=== PATIENT | male | born 1985 | race Caucasian/White ===

== ENCOUNTER 2020-06-12 10:26 | Outpatient (REF) | payer MEDICARE, MEDICAID, SELFPAY | END 2020-06-12 10:27 | disposition home or self-care (01) | LOC: HO.LAB 10:26 | PROVIDERS: Visit Provider Internal Medicine | DX: Z20.828 Contact with and (suspected) exposure to other viral communicable diseases (principal) | CPT/HCPCS: C9803; U0003 ==

== ENCOUNTER 2023-01-09 12:18 | Outpatient (REF) | payer MEDICARE, MEDICAID, SELFPAY ==
[2023-01-09 13:32] LABS: Estimated Average Glucose 131 mg/dL; Hemoglobin A1c % 6.2 %
[2023-01-09 13:45] LABS: Cholesterol 198 mg/dL; Glucose Fasting 105 mg/dL (60-99); HDL Cholesterol 37 mg/dL; LDL Cholesterol Calculated 120 mg/dl; Triglycerides 205 mg/dL
[2023-01-09 13:58] LABS: Free T4 (Free Thyroxine) 1.12 ng/dL (0.71-1.85); Thyroid Stimulating Hormone 1.11 uIU/mL (0.32-4.0)
== END 2023-01-09 12:19 | disposition home or self-care (01) ==
LOC: HO.LAB 12:18
PROVIDERS: Visit Provider Family Medicine
DX: R00.0 Tachycardia, unspecified (principal); E66.9 Obesity, unspecified; Z82.49 Family history of ischemic heart disease and other diseases of the circulatory system
CPT/HCPCS: 36415; 80061; 82947; 83036; 84439; 84443

== ENCOUNTER 2024-01-23 07:05 | Outpatient (REF) | payer MEDICARE, MEDICAID, SELFPAY ==
[2024-01-23 07:50] LABS: Estimated Average Glucose 194 mg/dL; Hemoglobin A1c % 8.4 % (<6.0)
[2024-01-23 08:02] LABS: Glucose Fasting 241 mg/dL (60-99)
== END 2024-01-23 07:06 | disposition home or self-care (01) ==
LOC: HO.LAB 07:05
PROVIDERS: PCP Family Medicine; Visit Provider Family Medicine
DX: E66.9 Obesity, unspecified (principal); Z83.3 Family history of diabetes mellitus; Z13.1 Encounter for screening for diabetes mellitus
CPT/HCPCS: 36415; 82947; 83036

== ENCOUNTER 2024-02-04 07:00 | Outpatient (REF) | payer MEDICARE, MEDICAID, SELFPAY ==
[2024-02-04 08:22] LABS: Estimated Average Glucose 183 mg/dL
[2024-02-04 08:44] LABS: Glucose Fasting 170 mg/dL (60-99)
[2024-02-04 08:50] LABS: Creatinine Urine 106.08 mg/dL; Microalbumin Urine < 5.0 mg/L
== END 2024-02-04 07:01 | disposition home or self-care (01) ==
LOC: HO.LAB 07:00
PROVIDERS: PCP Family Medicine; Visit Provider Family Medicine
DX: E11.9 Type 2 diabetes mellitus without complications (principal)
CPT/HCPCS: 36415; 82570; 82947; 83036

== ENCOUNTER 2024-02-05 12:47 | Outpatient (REF) | payer MEDICARE, MEDICAID, SELFPAY ==
[2024-02-15 02:54] LABS: Islet Cell Antibody Screen NEGATIVE (NEGATIVE)
== END 2024-02-05 12:48 | disposition home or self-care (01) ==
LOC: HO.LAB 12:47
PROVIDERS: PCP Family Medicine; Visit Provider Physician Assistant
DX: E11.65 Type 2 diabetes mellitus with hyperglycemia (principal); E66.9 Obesity, unspecified
CPT/HCPCS: 36415; 82947; 84681; 86341; 99202

== ENCOUNTER 2024-02-05 12:47 | Outpatient (AMB) | payer MEDICARE, MEDICAID, SELFPAY ==
--- NOTE | 2024-02-05 13:00 | A.OFFVIS_ITS ---
Vital Signs 02/05/24 13:03 Height 5 ft 6.3 in Weight 220 lb 7.396 oz BMI 35.3 BP 118/76 Blood Pressure Location Rt brachial Position Sitting Pulse 100 Pulse Source Pulse Oximeter Intake Visit Reasons: Type 2 DM/CONFIRMED Intake Note: New Patient presents today to establish treatment for Type 2 Diabetes Mellitus: Last diabetic eye exam was on: DUE Last Podiatry Exam was on: DUE Most recent HbA1c: 8.0%, 02/04/2024 Random Glucose- 149 mg/dL, Today Cathode Maker Required: No Accompanied by: Self / Same As Patient Allergies No Known Allergies [No Known Allergies*] Allergy (Verified 02/05/24 13:15) Medication List - Last Reconciled 02/05/24 by Allison Bashir PA-C famotidine 40 mg PO DAILY metformin 1,000 mg PO DAILY metoprolol succinate ER 25 mg PO DAILY omeprazole 20 mg PO DAILY HPI HPI Type 2 DM/CONFIRMED: Details: Patient is a 38-year-old male with a significant past medical history of type 2 diabetes, obesity, hypertension, tachy and GERD. He has been referred to endocrinology for evaluation of his diabetes. Endo: Last A1c was 8. He states that he got dx 2 weeks ago. He states He is currently on 1000 mg daily. He does get diarrhea at night with the metformin. He states that he does have a good general understanding of diabetes as most of his family members on his father's side are diabetics. He states that he did not really have any symptoms from diabetes. He does not have any testing supplies at home. He states he thinks his father has type 1 dm but cousins and uncles have type 2. CV: Blood pressure today in the office is 118/76.. He is currently on metoprolol 25 mg daily PFSH Surgical History (Updated 02/05/24 @ 13:05 by CHRIS Dey) Hx of hernia repair Family History (Updated 02/05/24 @ 13:06 by CHRIS Dey) Father Heart attack Mother Eye disease Chronic asthma Social History (Updated 02/05/24 @ 13:07 by CHRIS Dey) Alcohol intake: current Alcohol intake frequency: holidays/special occasions only Patient Tobacco Use Status: Former Tobacco user Physical Exam Vital Signs: BMI result Body Mass Index 35.3 Const Orientation/consciousness: patient oriented x3 Neck Neck: Yes no lymphadenopathy Thyroid: Thyroid normal Carotids: no bruits Resp Auscultation: clear to auscultation bilaterally Cardio Rate: regular rate Rhythm: regular rhythm Heart sounds: S1 normal heart sound present and S2 normal heart sound present Peripheral pulses: dorsalis pedis present Neuro General: patient oriented x3, gait normal and no focal motor deficits Extrem Other: Monofilament sensation intact bilaterally. Vibratory sensation intact bilaterally. Skin intact. General: Yes normal to inspection Results Reviewed Results Reviewed: Laboratory Tests 01/09/23 02/04/24 12:25 07:15 Fasting Glucose 170 H Estimat Average Glucose 183 Hemoglobin A1c % 8.0 H Triglycerides 205 Cholesterol 198 LDL Cholesterol, Calc 120 HDL Cholesterol 37 Assessment & Plan Assessment & Plan (1) Uncontrolled type 2 diabetes mellitus with hyperglycemia: Code(s): E11.65 - Type 2 diabetes mellitus with hyperglycemia Category: Medical Plan: We spent almost an hour reviewing the pathophysiology, complications, signs and symptoms of hyper and hypoglycemia and different medications associated with diabetes. Testing supplies ordered. We discussed adding on Ozempic but he would like to hold off and try to stick with the metformin. I will try dosing at 500 mg twice a day to see if that helps with any of his GI symptoms. Advised him to take this with food. I have referred him to diabetic Education as he does walk some more information regarding nutrition. I did provide him a packet today of nutrition information, portion sizes and we discussed carbohydrates at length. I have also encouraged him to increase his exercise. Antibody Test ordered Advised one-month follow-up. Sooner if needed. Patient understands and agrees with the plan. Orders: Orders Islet Cell Antibody Scrn/Titer Today E11.65 - Type 2 diabetes mellitus with hyperglycemia C Peptide Today E11.65 - Type 2 diabetes mellitus with hyperglycemia Referrals Diabetes Education Referral E11.65 - Type 2 diabetes mellitus with hyperglycemia Medications: New blood-glucose meter (FreeStyle Lite Meter kit) Use daily As directed to check blood glucose 1 ea 0RF E11.65 - Type 2 diabetes mellitus with hyperglycemia lancets (FreeStyle Lancets) use daily as directed to check blood glucose 100 ea 3RF E11.65 - Type 2 diabetes mellitus with hyperglycemia metformin 500 mg PO BID 180 tabs 3RF blood sugar diagnostic (FreeStyle Lite Strips) Use daily As directed to check blood glucose 100 ea 3RF E11.9 - Type 2 diabetes mellitus without complications Coding Level of Care Code New Pt Level 4 (42312) Complex EM visit Add On G2211 Diagnoses Uncontrolled type 2 diabetes mellitus with hyperglycemia E11.65
[2024-02-05 13:03] VITALS: BP 118/76; PULSE 100; BMI 35.3
[2024-02-05 13:14] LABS: Glucose, Whole Blood 149 mg/dL (60-115)
== END 2024-02-05 13:35 | disposition home or self-care (01) ==
PROVIDERS: PCP Family Medicine; Visit Provider Physician Assistant
DX: E11.65 Type 2 diabetes mellitus with hyperglycemia (principal)
CPT/HCPCS: 99204; G2211

== ENCOUNTER 2024-02-11 13:34 | Outpatient (REF) | payer MEDICARE, MEDICAID, SELFPAY ==
--- NOTE | ~2024-02-11 | XR_ITS ---
EXAMINATION: XR KNEE, LEFT CLINICAL INFORMATION: Pain in left knee COMPARISON: None available. TECHNIQUE: Four views of the left knee. FINDINGS: No fracture or joint effusion. Alignment is anatomic. Joint spaces are maintained. No abnormal soft tissue calcification. XR/XR knee LT 4V IMPRESSION: Normal left knee.
== END 2024-02-11 13:35 | disposition home or self-care (01) ==
LOC: HO.XRAY 13:34
PROVIDERS: PCP Family Medicine; Visit Provider Family Medicine
DX: M25.562 Pain in left knee (principal)
CPT/HCPCS: 73564

== ENCOUNTER 2024-02-19 13:14 | Outpatient (AMB) | payer MEDICARE, MEDICAID, SELFPAY ==
[2024-02-19 13:16] VITALS: BP 120/80; PULSE 91; BMI 35.5
--- NOTE | 2024-02-19 13:16 | A.OFFVIS_ITS ---
Vital Signs 02/19/24 13:16 Height 5 ft 6.3 in Weight 222 lb 0.088 oz BMI 35.5 BP 120/80 Blood Pressure Location Lt brachial Position Sitting Pulse 91 Pulse Source Pulse Oximeter Intake Visit Reasons: T2DM/Metformin issue-CONFIRMED Intake Note: Patient presents today for [facility] follow up visit. 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 Accompanied by: Self / Same As Patient Allergies No Known Allergies [No Known Allergies*] Allergy (Verified 02/19/24 13:22) Medication List - Last Reconciled 02/19/24 by Allison Bashir PA-C blood sugar diagnostic (FreeStyle Lite Strips) Use daily As directed to check blood glucose blood-glucose meter (FreeStyle Lite Meter kit) Use daily As directed to check blood glucose famotidine 40 mg PO DAILY lancets (FreeStyle Lancets) use daily as directed to check blood glucose metformin 500 mg PO BID metoprolol succinate ER 25 mg PO DAILY omeprazole 20 mg PO DAILY HPI HPI T2DM/Metformin issue-CONFIRMED: Details: Patient is a 38-year-old male with a significant past medical history of type 2 diabetes, obesity, hypertension, tachy and GERD who presents today in regards to his diabetes. Endo: Last A1c was 8. At our last visit I reduced his metformin. He is currently on metformin 500 mg once daily as he continued to have side effects with the metformin in his PCP further reduced it. He has been experiencing headaches, increased gas and diarrhea. So far the workup for type 1 diabetes is negative. He states he thinks his father has type 1 dm but cousins and uncles have type 2. CV: Blood pressure today in the office is 120/80.. He is currently on metoprolol 25 mg daily [facility] Medical History (Updated 02/15/24 @ 08:32 by Allison Bashir PA-C) Family history of type 1 diabetes mellitus Surgical History (Updated 02/05/24 @ 13:05 by CHRIS Dey) Hx of hernia repair Family History (Updated 02/05/24 @ 13:06 by CHRIS Dey) Father Heart attack Mother Eye disease Chronic asthma Social History (Updated 02/05/24 @ 13:07 by CHRIS Dey) Alcohol intake: current Alcohol intake frequency: holidays/special occasions only Patient Tobacco Use Status: Former Tobacco user Physical Exam Const Orientation/consciousness: patient oriented x3 Neck Neck: Yes no lymphadenopathy Thyroid: Thyroid normal Carotids: no bruits Resp Auscultation: clear to auscultation bilaterally Cardio Rate: regular rate Rhythm: regular rhythm Heart sounds: S1 normal heart sound present and S2 normal heart sound present Peripheral pulses: dorsalis pedis present Neuro General: patient oriented x3, gait normal and no focal motor deficits Extrem General: Yes normal to inspection Results Reviewed Results Reviewed: Laboratory Tests 01/09/23 02/04/24 02/05/24 12:25 07:15 13:10 Glucose (Clinic) 149 H Fasting Glucose 170 H Estimat Average Glucose 183 Hemoglobin A1c % 8.0 H C-Peptide Cholesterol 198 LDL Cholesterol, Calc 120 HDL Cholesterol 37 Islet Cell Ab Screen 02/05/24 13:54 Glucose (Clinic) Fasting Glucose Estimat Average Glucose Hemoglobin A1c % C-Peptide 3.70 Cholesterol LDL Cholesterol, Calc HDL Cholesterol Islet Cell Ab Screen NEGATIVE Assessment & Plan Assessment & Plan (1) Uncontrolled type 2 diabetes mellitus with hyperglycemia: Code(s): E11.65 - Type 2 diabetes mellitus with hyperglycemia Category: Medical Plan: I will start him on Ozempic. We discussed risks and benefits and adverse effects of this medication including nausea, vomiting, increased risk of pancreatitis. We have a follow-up scheduled in a few weeks. We will follow up sooner if needed. He will let me know if he runs into any issues picking this up. We will discontinue the metformin as he does not tolerate this. Patient understands and agrees with this plan. Medications: New semaglutide (Ozempic) for 4 weeks 0.25 mg (0.368 mL) subcut QWEEK 3 mL 1RF Discontinued metformin Discontinued Reason: Doctor's Order 500 mg PO BID 180 tabs 3RF Coding Level of Care Code Est Pt Level 4 (27873) Diagnoses Uncontrolled type 2 diabetes mellitus with hyperglycemia E11.65
[2024-02-19 13:30] LABS: Glucose, Whole Blood 145 mg/dL (60-115)
== END 2024-02-19 13:39 | disposition home or self-care (01) ==
PROVIDERS: PCP Family Medicine; Visit Provider Physician Assistant
DX: E11.65 Type 2 diabetes mellitus with hyperglycemia (principal)
CPT/HCPCS: 99214

== ENCOUNTER 2024-02-19 13:14 | Outpatient (REF) | payer MEDICARE, MEDICAID, SELFPAY ==
[2024-02-23 20:53] LABS: Glutamic acid decarboxylase Ab <5 IU/mL (<5)
== END 2024-02-19 13:15 | disposition home or self-care (01) ==
LOC: HO.LAB 13:14
PROVIDERS: PCP Family Medicine; Visit Provider Physician Assistant
DX: E11.65 Type 2 diabetes mellitus with hyperglycemia (principal); Z83.3 Family history of diabetes mellitus
CPT/HCPCS: 36415; 82947; 86341; 99212

== ENCOUNTER 2024-02-25 13:48 | Outpatient (AMB) | payer MEDICARE, MEDICAID, SELFPAY ==
--- NOTE | 2024-02-25 14:40 | A.OFFVIS_ITS ---
Intake Intake Visit Reasons: Type 2 diabetes mellitus with hyperglycemia Professor Of Biological Sciences Required: No Accompanied by: Self / Same As Patient Allergies No Known Allergies [No Known Allergies*] Allergy (Verified 02/19/24 13:22) [facility] Comprehensive Diabetes Asmnt Most Recent Diabetes Results: Microalb/Creat Ratio TNP 02/04/24 Cholesterol 198 mg/dL 01/09/23 HDL Cholesterol 37 mg/dL 01/09/23 Triglycerides 205 mg/dL 01/09/23 Creatinine 0.99 MG/DL (0.5-1.4) 05/04/19 Blood Urea Nitrogen 14 MG/DL (9-16) 05/04/19 Sodium 136 MMOL/L (135-145) 05/04/19 Potassium 3.8 MMOL/L (3.3-5.1) 05/04/19 Chloride 104 MMOL/L (96-108) 05/04/19 [facility] Medical History (Updated 02/15/24 @ 08:32 by Allison Bashir PA-C) Family history of type 1 diabetes mellitus Surgical History Hx of hernia repair Family History Father Heart attack Mother Eye disease Chronic asthma Social History Alcohol intake: current Alcohol intake frequency: holidays/special occasions only Patient Tobacco Use Status: Former Tobacco user Assessment & Plan Assessment & Plan (1) Uncontrolled type 2 diabetes mellitus with hyperglycemia: Code(s): E11.65 - Type 2 diabetes mellitus with hyperglycemia Plan: Learning objectives: The patient was provided with verbal and written education on the following topics as outlined below. The patient met all learning objectives and was able to verbalize understanding and provide teach back of education topics discussed . The patient was provided with the opportunity to ask questions and all questions were answered. Patient Assessment Assess patient education level/literacy/barriers Patient questions/concerns patient was diagnosed with diabetes approximately 1 month ago with an A1c of 8%. Patient reports he has family history of A1c, on both his mother and father side of the family Patient is currently taking metformin 1000 mg daily Waiting for approval of Mounjaro 2.5 mg from insurance, when he starts Mounjaro he will stop metformin due to GI issues What is Diabetes? Pathophysiology How the body produces and uses insulin Identify type of DM Risk factors Signs of Diabetes Brief overview of Diabetes Management Monitoring blood sugar Following a meal plan Regular exercise Maintaining a healthy weight Taking medication as needed Members of the care team (PCP, RN, MA, RD, CDE, supervisory air intercept controller) Blood glucose monitoring When/how often to test Target blood sugar ranges Introduction to Nutrition Importance of healthy diet in managing DM Diet is personalized to individual preference Review patient?s regular diet/food preferences Who prepares meals/does food shopping/ Dining out?/ Barriers? How diet effects glucose Eating 3 balanced meals a day with small, healthy snacks between meals Review food groups Carbohydrates: What is a carbohydrate/Which food/food groups are considered carbohydrates Effect of carbohydrates on blood glucose Portion sizes Reading food labels Basic carb counting (if applicable per nursing assessment) Plate method Meal planning Recommendations: Follow plate method, consistent carbs and read nutritional labels. Smart Goal: Patient will identify foods that he is currently eating that contain carbohydrates Educational Materials: The patient was provided with the following written educational materials: Planning Healthy Meals, Target Goal Handout Patient Response to instructions: Comprehension of Instructions: Fair Readiness to make changes: Contemplation How confident they feel about making changes: Positive Portions of this note were created using voice recognition software, please excuse any words or phrases that may have been misinterpreted. Patient Instructions: Include regular daily activity. ADA recommends 30 minutes of exercise 5 days a week. Weight loss talk to PCP or [employer] before starting new plan. Test blood sugar as directed; Fasting and 2hpp largest meal. Watch trends in results. Utilize results and to assess how food, physical activity and medications affect blood sugar results. Bring glucometer or CGM to next visit. Be knowledgeable about diabetes medication, its action, side effects, efficacy, toxicity, prescribed dosage, appropriate timing and frequency of administration, effect of missed and delayed doses and instructions for storage, travel and safety. Problem solving techniques to monitor hypo/hyperglycemia episodes and treatments. Reduce risk reduction behaviors, smoking cessation, regular eye, foot and dental examinations. Coding Level of Care Code Est Pt Level 1 (30401) Diagnoses Uncontrolled type 2 diabetes mellitus with hyperglycemia E11.65
== END 2024-02-25 14:42 | disposition home or self-care (01) ==
PROVIDERS: PCP Family Medicine; Visit Provider Registered Nurse Diabetes Educator
DX: E11.65 Type 2 diabetes mellitus with hyperglycemia (principal)

== ENCOUNTER → 2024-02-25 13:48 | Outpatient (BNVA) | payer MEDICARE, MEDICAID, SELFPAY | PROVIDERS: PCP Family Medicine; Visit Provider Registered Nurse Diabetes Educator | DX: E11.65 Type 2 diabetes mellitus with hyperglycemia (principal) | CPT/HCPCS: 99211 ==

== ENCOUNTER 2024-03-11 12:53 | Outpatient (AMB) | payer MEDICARE, MEDICAID, SELFPAY ==
[2024-03-11 12:57] VITALS: BP 118/78; PULSE 95; BMI 35.1
--- NOTE | 2024-03-11 12:57 | A.OFFVIS_ITS ---
Vital Signs 03/11/24 12:57 Height 5 ft 6.3 in Weight 219 lb 9.286 oz BMI 35.1 BP 118/78 Blood Pressure Location Lt brachial Position Sitting Pulse 95 Pulse Source Pulse Oximeter Intake Visit Reasons: T2DM Intake Note: Patient presents today for [facility] follow up visit. Last Diabetic Eye exam: 05/2023 Last Podiatry Visit: Doens't have one. 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 Accompanied by: Self / Same As Patient Allergies No Known Allergies [No Known Allergies*] Allergy (Verified 03/11/24 13:08) Medication List - Last Reconciled 03/11/24 by Allison Bashir PA-C blood sugar diagnostic (FreeStyle Lite Strips) Use daily As directed to check blood glucose blood-glucose meter (FreeStyle Lite Meter kit) Use daily As directed to check blood glucose famotidine 40 mg PO DAILY lancets (FreeStyle Lancets) use daily as directed to check blood glucose metoprolol succinate ER 25 mg PO DAILY omeprazole 20 mg PO DAILY tirzepatide (Mounjaro) 2.5 mg (0.5 mL) subcut QWEEK 4 weeks HPI HPI T2DM: Details: Patient is a 38-year-old male with a significant past medical history of type 2 diabetes presenting today for a follow-up. At our last visit I started him on Ozempic but it was not covered by insurance. The recommendation was Trulicity however this was out of stock. We then ordered Mounjaro but he was unable to get this. He has remained on metformin 500 mg once a day has excess gas and GI symptoms with this medication. Does not like this. He is unable to tolerate metformin. He has been checking his blood sugars regularly and states that it is usually between 140 and 150 in the morning fasting. Denies feeling hypoglycemic. He is working hard on his diet. He has lost a few lb with diet and exercise. [facility] Medical History (Updated 02/15/24 @ 08:32 by Allison Bashir PA-C) Family history of type 1 diabetes mellitus Surgical History Hx of hernia repair Family History Father Heart attack Mother Eye disease Chronic asthma Social History Alcohol intake: current Alcohol intake frequency: holidays/special occasions only Patient Tobacco Use Status: Former Tobacco user Physical Exam Vital Signs: Last Vital Signs Pulse 95 03/11/24 12:57 BP 118/78 03/11/24 12:57 BMI result Body Mass Index 35.1 Const Orientation/consciousness: patient oriented x3 Neck Neck: Yes no lymphadenopathy Thyroid: Thyroid normal Carotids: no bruits Resp Auscultation: clear to auscultation bilaterally Cardio Rate: regular rate Rhythm: regular rhythm Heart sounds: S1 normal heart sound present and S2 normal heart sound present Peripheral pulses: dorsalis pedis present Neuro General: patient oriented x3, gait normal and no focal motor deficits Extrem Other: Monofilament sensation intact bilaterally. Vibratory sensation intact bilaterally. Skin intact. General: Yes normal to inspection Results Reviewed Results Reviewed: Laboratory Tests 05/04/19 02/05/24 02/19/24 03:58 13:54 13:25 WBC 10.2 Glucose (Clinic) 145 H C-Peptide 3.70 Laboratory Tests 02/04/24 02/05/24 02/19/24 07:15 13:54 13:59 Urine Creatinine 106.08 Urine Microalbumin < 5.0 Microalb/Creat Ratio TNP Islet Cell Ab Screen NEGATIVE ADELSO Antibody <5 Laboratory Tests 01/09/23 01/23/24 02/04/24 12:25 07:16 07:15 Hemoglobin A1c % 6.2 8.4 H 8.0 H Triglycerides 205 Cholesterol 198 LDL Cholesterol, Calc 120 HDL Cholesterol 37 Assessment & Plan Assessment & Plan (1) Uncontrolled type 2 diabetes mellitus with hyperglycemia: Code(s): E11.65 - Type 2 diabetes mellitus with hyperglycemia Category: Medical Plan: Trulicity is back in stock. Ordered today. Prior Auth started. We reviewed risks, benefits and adverse effects of this medication including nausea, vomiting, increased risk of pancreatitis, diarrhea, constipation etc.. No family history of thyroid cancer. Advised to follow up in 1 month. Sooner if n eeded. Patient understands and agrees with the plan. Medications: New dulaglutide (Trulicity) 0.75 mg (0.5 mL) subcut QWEEK 2 mL 2RF Discontinued tirzepatide (Mounjaro) Discontinued Reason: Doctor's Order 2.5 mg (0.5 mL) subcut QWEEK 4 weeks 2 mL 1RF Coding Level of Care Code Est Pt Level 4 (05636) Diagnoses Uncontrolled type 2 diabetes mellitus with hyperglycemia E11.65
[2024-03-11 13:13] LABS: Glucose, Whole Blood 128 mg/dL (60-115)
== END 2024-03-11 13:35 | disposition home or self-care (01) ==
PROVIDERS: PCP Family Medicine; Visit Provider Physician Assistant
DX: E11.65 Type 2 diabetes mellitus with hyperglycemia (principal)
CPT/HCPCS: 99214

== ENCOUNTER → 2024-03-11 12:53 | Outpatient (BNVA) | payer MEDICARE, MEDICAID, SELFPAY | PROVIDERS: PCP Family Medicine; Visit Provider Physician Assistant | DX: E11.65 Type 2 diabetes mellitus with hyperglycemia (principal) | CPT/HCPCS: 82947; 99212 ==

== ENCOUNTER 2024-04-15 12:49 | Outpatient (AMB) | payer MEDICARE, MEDICAID, SELFPAY ==
--- NOTE | 2024-04-15 12:52 | A.OFFVIS_ITS ---
Vital Signs 04/15/24 12:53 Height 5 ft 6.3 in Weight 222 lb 7.143 oz BMI 35.6 BP 110/80 Blood Pressure Location Lt brachial Position Sitting Pulse 90 Pulse Source Pulse Oximeter Intake Visit Reasons: DM/CONFIRMED Intake Note: Patient presents today for [facility] follow up visit. Last Diabetic Eye exam: 05/2023 Last Podiatry Visit: Doesn't have one Random Glucose: 153 mg/dl HgA1c: 8.0% 02/04/24 Mental Health Consultant Required: No Accompanied by: Self / Same As Patient Allergies No Known Allergies [No Known Allergies*] Allergy (Verified 04/15/24 12:57) Medication List - Last Reconciled 04/15/24 by Allison Bashir PA-C blood sugar diagnostic (FreeStyle Lite Strips) Use daily As directed to check blood glucose blood-glucose meter (FreeStyle Lite Meter kit) Use daily As directed to check blood glucose dulaglutide (Trulicity) 0.75 mg (0.5 mL) subcut QWEEK famotidine 40 mg PO DAILY lancets (FreeStyle Lancets) use daily as directed to check blood glucose metoprolol succinate ER 25 mg PO DAILY omeprazole 20 mg PO DAILY HPI HPI DM/CONFIRMED: Details: Patient is a 39-year-old male who presents today for a follow up of his diabetes. Endo: Recently diagnosed type 2 diabetic. Trialed metformin because GI upset. Last A1c was 8. He was seen recently and started on Trulicity. He tells me that he is tolerating this very well. No adverse effects. His blood sugars have been anywhere from 110-150 in the morning. He states that this is a lot better. Over the last couple weeks it seems like it has been closer to the 110- 130. He has not noted any appetite suppression. He states that he would like to lose a few lb and states that he knows what he is doing wrong. CV: Blood pressure today in the office is 110/80. He is on metoprolol 25 mg daily. [facility] Medical History (Updated 02/15/24 @ 08:32 by Allison Bashir PA-C) Family history of type 1 diabetes mellitus Surgical History Hx of hernia repair Family History Father Heart attack Mother Eye disease Chronic asthma Social History Alcohol intake: current Alcohol intake frequency: holidays/special occasions only Patient Tobacco Use Status: Former Tobacco user Physical Exam Vital Signs: Last Vital Signs Pulse 90 04/15/24 12:53 BP 110/80 04/15/24 12:53 BMI result Body Mass Index 35.6 Const Orientation/consciousness: patient oriented x3 Neck Neck: Yes no lymphadenopathy Thyroid: Thyroid normal Carotids: no bruits Resp Auscultation: clear to auscultation bilaterally Cardio Rate: regular rate Rhythm: regular rhythm Heart sounds: S1 normal heart sound present and S2 normal heart sound present Peripheral pulses: dorsalis pedis present Neuro General: patient oriented x3, gait normal and no focal motor deficits Extrem Other: Monofilament sensation intact bilaterally. Vibratory sensation intact bilaterally. Skin intact. General: Yes normal to inspection Results Reviewed Results Reviewed: Laboratory Tests 02/04/24 02/05/24 02/19/24 07:15 13:54 13:59 Glucose (Clinic) Hemoglobin A1c % 8.0 H C-Peptide 3.70 Urine Creatinine 106.08 Urine Microalbumin < 5.0 Microalb/Creat Ratio TNP Islet Cell Ab Screen NEGATIVE ADELSO Antibody <5 03/11/24 04/15/24 13:09 12:59 Glucose (Clinic) 128 H 153 H Hemoglobin A1c % C-Peptide Urine Creatinine Urine Microalbumin Microalb/Creat Ratio Islet Cell Ab Screen ADELSO Antibody Assessment & Plan Assessment & Plan (1) Uncontrolled type 2 diabetes mellitus with hyperglycemia: Code(s): E11.65 - Type 2 diabetes mellitus with hyperglycemia Category: Medical Plan: Will increase trulicity to 1.5 mg weekly. labs ordered to be rechecked prior to next appointment. follow up in 3 months or sooner prn Orders: Orders Comprehensive [place]. Panel Fast Today E11.65 - Type 2 diabetes mellitus with hyperglycemia Hemoglobin A1c Today E11.65 - Type 2 diabetes mellitus with hyperglycemia Medications: New dulaglutide (Trulicity) 1.5 mg (0.5 mL) subcut QWEEK 2 mL 6RF Discontinued dulaglutide (Trulicity) Discontinued Reason: Doctor's Order 0.75 mg (0.5 mL) subcut QWEEK 2 mL 2RF Coding Level of Care Code Est Pt Level 4 (78762) Complex EM visit Add On G2211 Diagnoses Uncontrolled type 2 diabetes mellitus with hyperglycemia E11.65
[2024-04-15 12:53] VITALS: BP 110/80; PULSE 90; BMI 35.6
[2024-04-15 13:03] LABS: Glucose, Whole Blood 153 mg/dL (60-115)
== END 2024-04-15 13:16 | disposition home or self-care (01) ==
PROVIDERS: PCP Family Medicine; Visit Provider Physician Assistant
DX: E11.65 Type 2 diabetes mellitus with hyperglycemia (principal)

== ENCOUNTER → 2024-04-15 12:49 | Outpatient (BNVA) | payer MEDICARE, MEDICAID, SELFPAY | PROVIDERS: PCP Family Medicine; Visit Provider Physician Assistant | DX: E11.65 Type 2 diabetes mellitus with hyperglycemia (principal); Z79.85 Long-term (current) use of injectable non-insulin antidiabetic drugs | CPT/HCPCS: 82947; 99212 ==

== ENCOUNTER 2024-05-26 12:43 | Outpatient (AMB) | payer MEDICARE, MEDICAID, SELFPAY ==
--- NOTE | 2024-05-26 13:07 | A.OFFVIS_ITS ---
Intake Intake Visit Reasons: T2DM, hyperglycemia-conf Tool Maker Bench Required: No Accompanied by: Self / Same As Patient Allergies No Known Allergies [No Known Allergies*] Allergy (Verified 04/15/24 12:57) HPI Comprehensive Diabetes Asmnt Most Recent Diabetes Results: Microalb/Creat Ratio TNP 02/04/24 Cholesterol 198 mg/dL 01/09/23 HDL Cholesterol 37 mg/dL 01/09/23 Triglycerides 205 mg/dL 01/09/23 Creatinine 0.99 MG/DL (0.5-1.4) 05/04/19 Blood Urea Nitrogen 14 MG/DL (9-16) 05/04/19 Sodium 136 MMOL/L (135-145) 05/04/19 Potassium 3.8 MMOL/L (3.3-5.1) 05/04/19 Chloride 104 MMOL/L (96-108) 05/04/19 [facility] Medical History (Updated 02/15/24 @ 08:32 by Alilson Bashir PA-C) Family history of type 1 diabetes mellitus Surgical History Hx of hernia repair Family History Father Heart attack Mother Eye disease Chronic asthma Social History Alcohol intake: current Alcohol intake frequency: holidays/special occasions only Patient Tobacco Use Status: Former Tobacco user Assessment & Plan Assessment & Plan (1) Uncontrolled type 2 diabetes mellitus with hyperglycemia: Code(s): E11.65 - Type 2 diabetes mellitus with hyperglycemia Plan: Learning objectives: The patient was provided with verbal and written education on the following topics as outlined below. Patient questions/concerns, patient has 2nd visit brought meter with only 3 fasting glucose levels in the past 14 days. 113 mg/dL to 138 mg/dL Patient is currently taking Trulicity 1.5 mg weekly Patient is due for A1c, lab has been place patient reports he will get labs drawn next week Overall patient reports feeling well, he has been more physically active over the summer playing softball. Denies symptoms of hypoglycemia The patient met all learning objectives and was able to verbalize understanding and provide teach back of education topics discussed . The patient was provided with the opportunity to ask questions and all questions were answered. Topics covered in today?s session included: Medications (If applicable) * Name of medication? * Dosing/administration instructions? * Mechanism of action? * Potential side effects? * Potential adverse reaction and appropriate treatment? * Review onset, peak, duration Assess for concerns re: insurance coverage, cost, barriers to compliance Insulin/Injectables (If applicable) * Storage/care of insulin?? * Injection sites? * Site rotation? * Onset, peak, duration * Drawing up insulin? * Injecting insulin/other injectables? * Sharps disposal Continuous blood glucose monitoring (if applicable) Hypoglycemia and Hyperglycemia * Signs and symptoms? * Causes?? * Treatment? * Preventing hypoglycemia? * When to seek medical attention Target Goals: * Blood glucose targets and how you feel when your blood glucose is in and out of your target ranges. * Monitoring and knowing your A1C. * What can make blood glucose go up and down and preventing high and low blood glucose. * Review of blood sugar targets in expected goal range and outside of expected goal range. * Problem solving and preventing hyper/hypoglycemia. * Sick day management of diabetes. * Using blood sugar results in decision making process in managing diabetes. ?Patient was receptive to information provided and participated in the discussion. Asked?appropriate questions and demonstrated good understanding of the topics discussed.? ? Educational Materials: The patient was provided with the following written educational materials: Target Goal, screening checklist handout Smart Goal Assessment:? Patient identified foods that contain carbohydrate that he is currently eating Pt met goal 75% New Smart Goal: Patient will choose indoor activity to keep up exercise before next visit in 1 month Patient Response to instructions: Comprehension of Instructions: good Readiness to make changes:? Contemplation How confident they feel about making changes: Positive Portions of this note were created using voice recognition software, please excuse any words or phrases that may have been misinterpreted. Coding Level of Care Code Est Pt Level 1 (70850) Diagnoses Uncontrolled type 2 diabetes mellitus with hyperglycemia E11.65
== END 2024-05-26 13:23 | disposition home or self-care (01) ==
LOC: HO.ENCR 12:43
PROVIDERS: PCP Family Medicine; Visit Provider Registered Nurse Diabetes Educator
DX: E11.65 Type 2 diabetes mellitus with hyperglycemia (principal)

== ENCOUNTER → 2024-05-26 12:43 | Outpatient (BNVA) | payer MEDICARE, MEDICAID, SELFPAY | PROVIDERS: PCP Family Medicine; Visit Provider Registered Nurse Diabetes Educator | DX: E11.65 Type 2 diabetes mellitus with hyperglycemia (principal); Z71.89 Other specified counseling | CPT/HCPCS: 99211 ==

== ENCOUNTER 2024-05-28 08:04 | Outpatient (REF) | payer MEDICARE, MEDICAID, SELFPAY ==
[2024-05-28 09:35] LABS: Estimated Average Glucose 148 mg/dL; Hemoglobin A1c % 6.8 % (<6.0); Total Hemoglobin (HGBA1C) 4176.3978 umol/L
[2024-05-28 10:32] LABS: Alanine Aminotransferase 67 U/L (0-40); Albumin Level 4.5 g/dL (3.5-5.0); Alkaline Phosphatase 89 U/L (39-117); Anion Gap 17 (12-20); Aspartate Amino Transferase 29 U/L (5-37); Bilirubin Total 0.5 mg/dL (0.0-1.0); Blood Urea Nitrogen 14 mg/dL (9-16); Calcium 9.4 mg/dL (8.4-10.2); Carbon Dioxide 21 mmol/L (22-29); Chloride 106 mmol/L (96-108); Estimated Glomerular Filt Rate > 60; Glucose Fasting 144 mg/dL (60-99); Sodium 140 mmol/L (135-145); Total Protein 7.6 g/dL (6.5-8.0)
== END 2024-05-28 08:05 | disposition home or self-care (01) ==
LOC: HO.LAB 08:04
PROVIDERS: PCP Physician Assistant; Visit Provider Physician Assistant
DX: E11.65 Type 2 diabetes mellitus with hyperglycemia (principal)
CPT/HCPCS: 36415; 80053; 83036

== ENCOUNTER 2024-06-21 08:00 | Outpatient (REF) | payer MEDICARE, MEDICAID, SELFPAY | END 2024-06-21 08:01 | disposition home or self-care (01) | LOC: HO.US 08:00 | PROVIDERS: PCP Physician Assistant; Visit Provider Physician Assistant | DX: E11.65 Type 2 diabetes mellitus with hyperglycemia (principal); R79.89 Other specified abnormal findings of blood chemistry; E66.9 Obesity, unspecified | CPT/HCPCS: 76700; 76981 ==

== ENCOUNTER → 2024-06-21 08:05 | Outpatient (BNV) | payer MEDICARE, MEDICAID, SELFPAY | PROVIDERS: PCP Physician Assistant; Visit Provider Radiology Diagnostic Radiology | DX: R74.01 Elevation of levels of liver transaminase levels (principal) | CPT/HCPCS: 76700 ==

== ENCOUNTER 2024-06-30 12:44 | Outpatient (AMB) | payer MEDICARE, MEDICAID, SELFPAY ==
--- NOTE | 2024-06-30 13:17 | A.OFFVIS_ITS ---
Intake Intake Visit Reasons: 60 min Workplace Rehabilitation Officer Required: No Accompanied by: Self / Same As Patient Allergies No Known Allergies [No Known Allergies*] Allergy (Verified 04/15/24 12:57) HPI Comprehensive Diabetes Asmnt Most Recent Diabetes Results: Microalb/Creat Ratio TNP 02/04/24 Cholesterol 198 mg/dL 01/09/23 HDL Cholesterol 37 mg/dL 01/09/23 Triglycerides 205 mg/dL 01/09/23 Creatinine 0.91 mg/dL (0.5-1.4) 05/28/24 Blood Urea Nitrogen 14 mg/dL (9-16) 05/28/24 Sodium 140 mmol/L (135-145) 05/28/24 Potassium 4.0 mmol/L (3.3-5.1) 05/28/24 Chloride 106 mmol/L (96-108) 05/28/24 Carbon Dioxide 21 mmol/L (22-29) L 05/28/24 Calcium 9.4 mg/dL (8.4-10.2) 05/28/24 AST 29 U/L (5-37) 05/28/24 ALT 67 U/L (0-40) H 05/28/24 Total Protein 7.6 g/dL (6.5-8.0) 05/28/24 Albumin 4.5 g/dL (3.5-5.0) 05/28/24 [facility] Medical History (Updated 05/30/24 @ 08:17 by Allison Bashir PA-C) Family history of type 1 diabetes mellitus Surgical History Hx of hernia repair Family History Father Heart attack Mother Eye disease Chronic asthma Social History Alcohol intake: current Alcohol intake frequency: holidays/special occasions only Patient Tobacco Use Status: Former Tobacco user Assessment & Plan Assessment & Plan (1) Uncontrolled type 2 diabetes mellitus with hyperglycemia: Code(s): E11.65 - Type 2 diabetes mellitus with hyperglycemia Plan: Learning objectives: The patient was provided with verbal and written education on the following topics as outlined below. The patient met all learning objectives and was able to verbalize understanding and provide teach back of education topics discussed . The patient was provided with the opportunity to ask questions and all questions were answered. Patient Assessment Patient questions/concerns patient's last A1c on 05/25/2024 6.8%, patient reports he has decreased the amount of take out food he was eating, and reduced portions of carbohydrates at meals. Patient is currently taking Trulicity 1.5 mg weekly Exercise Medical clearance Effect of exercise on blood sugar Start slowly and gradually increase pace/duration over time Goal amount of exercise Checking blood glucose/have a source of carbs with you Diabetes Complications: ?Nephropathy :Kidney Disease ?diabetes can damage the kidneys, which is not only can cause them to fail but can make them lose their ability to filter waste from the blood? ?Retinopathy: Eye complications ?Retinopathy? is the commonest long-term complication of diabetes. It is leading cause of blindness Besides, Retinopathy- People with diabetes? are also prone to cataract and Glaucoma. ?Neuropathy: Nerve damage -It involves temporary or permanent damage to nerve tissue. Nerve tissue gets injured mainly due to decreased blood flow and rise in blood glucose levels. This damage can lead to pain , or loss of sensation it can also include sexual dysfunction in both men and women ? Infections poor healing: People with diabetes? have increased susceptibility to various infections, such as? pneumonias, pyelonephritis, carbuncles and diabetic ulcers. This may be due to poor blood supply, reduced cellular immunity or hyperglycemia. ?Heart Disease And Stroke: People with diabetes are four times more prone to develop Heart disease than those who do not have diabetes ?Depression: Feeling down once in awhile is normal, but some people feel sadness that just won't go away. Life for them seems hopeless. Feeling this way most of the day for two weeks or more is a sign of serious depression ?Gum Disease: People get gum disease when plaque destroys the gums and bone around the teeth. People with diabetes can get gum disease from having high blood glucose levels for a long time Lifestyle * Work * Travel * Stress management * Problem solving Know your goals * A1C * Blood sugar targets * Blood pressure * Cholesterol/LDL Urine microalbumin Smart Goal Assessment:Patient will choose indoor activity to keep up exercise before next visit in 1 month Pt met goal less than 25% New Goal:? Patient will continue to work towards increasing physical activity Educational Materials: The patient was provided with the following written educational materials: ADCES 7 Healthy Behaviors Reducing Risks handout Patient Response to instructions: Comprehension of Instructions: Good Readiness to make changes: action How confident they feel about making changes: Positive Letter of completion of diabetes Education program will be sent to referring provider Portions of this note were created using voice recognition software, please excuse any words or phrases that may have been misinterpreted. Patient Instructions: Include regular daily activity. ADA recommends 30 minutes of exercise 5 days a week. Weight loss talk to PCP or Cavity Pump Operator before starting new plan. Test blood sugar as directed; Fasting and 2hpp largest meal. Watch trends in results. Utilize results and to assess how food, physical activity and medications affect blood sugar results. Bring glucometer or CGM to next visit. Be knowledgeable about diabetes medication, its action, side effects, efficacy, toxicity, prescribed dosage, appropriate timing and frequency of administration, effect of missed and delayed doses and instructions for storage, travel and safety. Problem solving techniques to monitor hypo/hyperglycemia episodes and treatments. Reduce risk reduction behaviors, smoking cessation, regular eye, foot and dental examinations. Coding Level of Care Code Est Pt Level 1 (17674) Diagnoses Uncontrolled type 2 diabetes mellitus with hyperglycemia E11.65
== END 2024-06-30 13:22 | disposition home or self-care (01) ==
PROVIDERS: PCP Family Medicine; Visit Provider Registered Nurse Diabetes Educator
DX: E11.65 Type 2 diabetes mellitus with hyperglycemia (principal)

== ENCOUNTER → 2024-06-30 12:44 | Outpatient (BNVA) | payer MEDICARE, MEDICAID, SELFPAY | PROVIDERS: PCP Family Medicine; Visit Provider Registered Nurse Diabetes Educator | DX: E11.65 Type 2 diabetes mellitus with hyperglycemia (principal) | CPT/HCPCS: 99211 ==

== ENCOUNTER 2024-07-08 13:17 | Outpatient (AMB) | payer MEDICARE, MEDICAID, SELFPAY ==
[2024-07-08 13:20] VITALS: BP 116/88; PULSE 102; BMI 36.1
--- NOTE | 2024-07-08 13:20 | MHC.OFFVIS ---
Vital Signs 07/08/24 13:20 Height 5 ft 6.3 in Weight 225 lb 8.526 oz BMI 36.1 BP 116/88 Blood Pressure Location Lt brachial Position Sitting Pulse 102 H Pulse Source Pulse Oximeter Intake Visit Reasons: DM/Confirmed Intake Note: Patient present today for Type 2 Diabetes Mellitus. Last Diabetic eye exam: 2022 Last Podiatry Visit: Doesn't have one Random Glucose: 229 mg/dl HgA1C: 6.8% 05/28/24 Customer Service Sales Consultant Required: No Accompanied by: Self / Same As Patient Allergies No Known Allergies [No Known Allergies*] Allergy (Verified 07/08/24 13:25) HPI HPI DM/Confirmed: Details: Patient is a 39-year-old male who presents today for a follow up of his diabetes. Endo: Recently diagnosed type 2 diabetic. Trialed metformin because GI upset. Last A1c was 6.8. He was seen recently and started on Trulicity. He tells me that he is tolerating this very well. No adverse effects. He also quit drinking. Last LFTs were a little elevated and he tells me that that made him nervous so he stopped drinking. He would go for his liver ultrasound however results are yet back. CV: Blood pressure today in the office is 116/88. He is on metoprolol 25 mg daily. [facility] Medical History (Updated 05/30/24 @ 08:17 by Allison Bashir PA-C) Family history of type 1 diabetes mellitus Surgical History Hx of hernia repair Family History Father Heart attack Mother Eye disease Chronic asthma Social History Alcohol intake: current Alcohol intake frequency: holidays/special occasions only Patient Tobacco Use Status: Former Tobacco user Physical Exam Vital Signs: Last Vital Signs Pulse 102 H 07/08/24 13:20 BP 116/88 07/08/24 13:20 BMI result Body Mass Index 36.1 Const Orientation/consciousness: patient oriented x3 Neck Neck: Yes no lymphadenopathy Thyroid: Thyroid normal Carotids: no bruits Resp Auscultation: clear to auscultation bilaterally Cardio Rate: regular rate Rhythm: regular rhythm Heart sounds: S1 normal heart sound present and S2 normal heart sound present Neuro General: patient oriented x3, gait normal and no focal motor deficits Extrem General: Yes normal to inspection Results Reviewed Results Reviewed: Laboratory Last Values Glucose (Clinic) 229 mg/dL (60-115) H 07/08/24 13:27 Laboratory Tests 02/04/24 05/28/24 07:15 08:39 Sodium 140 Potassium 4.0 Chloride 106 Carbon Dioxide 21 L Anion Gap 17 BUN 14 Creatinine 0.91 Estimated GFR > 60 Hemoglobin A1c % 6.8 H AST 29 ALT 67 H Urine Creatinine 106.08 Urine Microalbumin < 5.0 Assessment & Plan Assessment & Plan (1) Uncontrolled type 2 diabetes mellitus with hyperglycemia: Code(s): E11.65 - Type 2 diabetes mellitus with hyperglycemia Category: Medical Plan: Continue current plan. Repeat labs in 3 months. Encouraged him to continue to work on diet exercise. (2) Elevated LFTs: Code(s): R79.89 - Other specified abnormal findings of blood chemistry Category: Medical Plan: Congratulated him on quitting drinking. I have encouraged him to reduce his fried food, processed food and weight. We will check labs in a few months. We will follow up once results are available. (3) Obesity (BMI 30-39.9): Code(s): E66.9 - Obesity, unspecified Category: Medical Plan: As above. Orders: Orders Comprehensive [place]. Panel Fast Today E11.65 - Type 2 diabetes mellitus with hyperglycemia, E66.9 - Obesity, unspecified, R79.89 - Other specified abnormal findings of blood chemistry Hemoglobin A1c Today E11.65 - Type 2 diabetes mellitus with hyperglycemia, E66.9 - Obesity, unspecified, R79.89 - Other specified abnormal findings of blood chemistry Coding Level of Care Code Est Pt Level 4 (11876) Complex EM visit Add On G2211 Diagnoses Uncontrolled type 2 diabetes mellitus with hyperglycemia E11.65 Elevated LFTs R79.89 Obesity (BMI 30-39.9) E66.9
[2024-07-08 13:30] LABS: Glucose, Whole Blood 229 mg/dL (60-115)
== END 2024-07-08 13:57 | disposition home or self-care (01) ==
PROVIDERS: PCP Family Medicine; Visit Provider Physician Assistant
DX: E11.65 Type 2 diabetes mellitus with hyperglycemia (principal); R79.89 Other specified abnormal findings of blood chemistry; E66.9 Obesity, unspecified

== ENCOUNTER → 2024-07-08 13:17 | Outpatient (BNVA) | payer MEDICARE, MEDICAID, SELFPAY | PROVIDERS: PCP Family Medicine; Visit Provider Physician Assistant | DX: E11.65 Type 2 diabetes mellitus with hyperglycemia (principal); E66.9 Obesity, unspecified; R79.89 Other specified abnormal findings of blood chemistry; Z68.36 Body mass index [BMI] 36.0-36.9, adult | CPT/HCPCS: 82947; 99212 ==

== ENCOUNTER 2024-08-23 13:32 | Outpatient (AMB) | payer MEDICARE, MEDICAID, SELFPAY ==
--- NOTE | 2024-08-23 13:38 | MHC.OFFVIS ---
Vital Signs 08/23/24 13:49 Height 5 ft 6.3 in Weight 225 lb BMI 36.0 BP 132/78 Blood Pressure Location Rt brachial Position Sitting Pulse 102 H Intake Visit Reasons: Biliary cyst Intake Note: Patient referred by Allison Bashir PA-C for biliary cyst. Patient c/o: denies nausea, diarrhea, constipation. US abdomen comp w elastography~ 06-21-2024 Maintenance Planning Clerk Required: No Accompanied by: Self / Same As Patient Allergies No Known Allergies [No Known Allergies*] Allergy (Verified 08/23/24 13:46) Medication List - Last Reconciled 08/23/24 by Corey Díaz MD blood sugar diagnostic (FreeStyle Lite Strips) Use 3 x daily As directed to check blood glucose blood-glucose meter (FreeStyle Lite Meter kit) Use daily As directed to check blood glucose famotidine 40 mg PO DAILY lancets (FreeStyle Lancets) use 3 x daily as directed to check blood glucose metoprolol succinate ER 25 mg PO DAILY omeprazole 20 mg PO DAILY HPI Comments Details: Patient presents for evaluation of an incidentally found biliary cyst on liver evaluation. Patient was absolutely no biliary symptoms or complaints. He is tolerating a diet he has regular bowel habits. He is relatively newly diagnosed type buttock and is working on getting his A1c down with diet modification, exercise and meds. Chart was reviewed and patient evaluated [facility] Medical History Family history of type 1 diabetes mellitus Surgical History Hx of hernia repair Family History Father Heart attack Mother Eye disease Chronic asthma Social History Alcohol intake: current Alcohol intake frequency: holidays/special occasions only Patient Tobacco Use Status: Former Tobacco user Physical Exam Vital Signs: Last Vital Signs Pulse 102 H 08/23/24 13:49 BP 132/78 08/23/24 13:49 BMI result Body Mass Index 36.0 Eyes Other: Anicteric GI Other: Abdomen corpulent, soft, benign Assessment & Plan Assessment & Plan (1) Biliary cyst: Code(s): K83.5 - Biliary cyst Category: Surgical Plan: Patient will undergo annual surveillance by ultrasound of his biliary cyst. Arrangements were made for this and he will see me after the study in 1 year's time. She would develop any upper abdominal symptoms or complaints at this interim, he has been instructed to contact the office but patient will otherwise see me as noted above. All questions answered. Orders: Orders US abdomen limited 11 Months K83.5 - Biliary cyst Coding Level of Care Code New Pt Level 4 (53659) Diagnoses Biliary cyst K83.5
[2024-08-23 13:49] VITALS: BP 132/78; PULSE 102; BMI 36.0
== END 2024-08-23 13:57 | disposition home or self-care (01) ==
PROVIDERS: PCP Family Medicine; Referring Provider Physician Assistant; Visit Provider Surgery
DX: K83.5 Biliary cyst (principal)
CPT/HCPCS: 99204

== ENCOUNTER → 2024-08-23 13:32 | Outpatient (BNVA) | payer MEDICARE, MEDICAID, SELFPAY | PROVIDERS: PCP Family Medicine; Referring Provider Physician Assistant; Visit Provider Surgery | DX: K83.5 Biliary cyst (principal) | CPT/HCPCS: 99202 ==

== ENCOUNTER 2024-10-07 12:49 | Outpatient (AMB) | payer MEDICARE, MEDICAID, SELFPAY ==
--- NOTE | 2024-10-07 12:54 | A.OFFVIS_ITS ---
Vital Signs 10/07/24 12:55 Height 5 ft 6.3 in Weight 227 lb 1.218 oz BMI 36.3 BP 121/75 Blood Pressure Location Lt brachial Position Sitting Pulse 102 H Pulse Source Pulse Oximeter Pulse Oximetry (%) 98 Oxygen Delivery Method Room Air Intake Visit Reasons: DM Intake Note: Patient presents today for a follow-up on Type 2 Diabetes Mellitus: Last Diabetic eye exam was on: DUE Last Podiatry exam was on: Patient does not see a Shingles Roofer Most recent HbA1c: 8.1%, 10/07/2024 Random Glucose- 259 mg/dL, Today Manufactured Buildings Supervisor Required: No Accompanied by: Self / Same As Patient Allergies No Known Allergies [No Known Allergies*] Allergy (Verified 10/07/24 12:59) Medication List - Last Reconciled 10/07/24 by Allison Bashir PA-C blood sugar diagnostic (FreeStyle Lite Strips) Use 3 x daily As directed to check blood glucose blood-glucose meter (FreeStyle Lite Meter kit) Use daily As directed to check blood glucose famotidine 40 mg PO DAILY lancets (FreeStyle Lancets) use 3 x daily as directed to check blood glucose metoprolol succinate ER 25 mg PO DAILY omeprazole 20 mg PO DAILY semaglutide (Ozempic) 0.5 mg (0.736 mL) subcut QWEEK HPI HPI DM: Details: Patient is a 39-year-old male who presents today for a follow up of his diabetes. Endo: Recently diagnosed type 2 diabetic (2023). Last A1c was 6.8 and today is 8.1.. He states the A1c when up because he was off of Trulicity for about a month. He states that despite being on the 1.5 mg he still has high blood sugars at times. He says his sugars are around 200. He is also at times feeling a little nauseous. Denies any low blood sugars. Trialed metformin because GI upset. He states that the Trulicity appears to be completely ineffective and at times he is getting nauseous with it. He wants to try a different medication. CV: Blood pressure today in the office is 121/75 He is on metoprolol 25 mg daily. His weight is still elevated and he states that aware that he to lose weight. GI: He has had a liver ultrasound in his following with GI for his fatty liver. [facility] Medical History Family history of type 1 diabetes mellitus Surgical History Hx of hernia repair Family History Father Heart attack Mother Eye disease Chronic asthma Social History Alcohol intake: current Alcohol intake frequency: holidays/special occasions only Patient Tobacco Use Status: Former Tobacco user Physical Exam Vital Signs: BMI result Body Mass Index 36.3 Const Orientation/consciousness: patient oriented x3 Neck Neck: Yes no lymphadenopathy Thyroid: Thyroid normal Carotids: no bruits Resp Auscultation: clear to auscultation bilaterally Cardio Rate: regular rate Rhythm: regular rhythm Heart sounds: S1 normal heart sound present and S2 normal heart sound present Peripheral pulses: dorsalis pedis present Neuro General: patient oriented x3, gait normal and no focal motor deficits Extrem Other: Monofilament sensation intact bilaterally. Vibratory sensation intact bilaterally. Skin intact. General: Yes normal to inspection Results AMB Hemoglobin A1c AMB Hemoglobin A1c 8.1 % Last Edit by CHRIS Dey on 10/07/24 13:07 Results Reviewed Results Reviewed: Laboratory Tests 01/09/23 02/04/24 02/05/24 12:25 07:15 13:54 Sodium Potassium Chloride Carbon Dioxide Anion Gap BUN Creatinine Estimated GFR Glucose (Clinic) Hemoglobin A1c % AST ALT Alkaline Phosphatase Triglycerides 205 Cholesterol 198 LDL Cholesterol, Calc 120 HDL Cholesterol 37 Urine Creatinine 106.08 Urine Microalbumin < 5.0 Islet Cell Ab Screen NEGATIVE ADELSO Antibody 02/19/24 05/28/24 07/08/24 13:59 08:39 13:27 Sodium 140 Potassium 4.0 Chloride 106 Carbon Dioxide 21 L Anion Gap 17 BUN 14 Creatinine 0.91 Estimated GFR > 60 Glucose (Clinic) 229 H Hemoglobin A1c % 6.8 H AST 29 ALT 67 H Alkaline Phosphatase 89 Triglycerides Cholesterol LDL Cholesterol, Calc HDL Cholesterol Urine Creatinine Urine Microalbumin Islet Cell Ab Screen ADELSO Antibody <5 Assessment & Plan Assessment & Plan (1) Uncontrolled type 2 diabetes mellitus with hyperglycemia: Code(s): E11.65 - Type 2 diabetes mellitus with hyperglycemia Category: Medical Plan: I will start him on glipizide and we discussed risks and benefits and adverse effects of this medication. He will let me know if he gets any lows. I am going to start him on Ozempic to hopefully help with his fatty liver and weight as well as diabetes. Again reviewed, benefits and adverse effects of this medication. Did discuss that we will start on a low dose and taper up as tolerated. I will bring him into the office in 1 month. He will complete labs prior to our appointment. (2) Obesity (BMI 30-39.9): Code(s): E66.9 - Obesity, unspecified Category: Medical Plan: Offered referral to a inhalation therapy aides teacher. He declines. Encouraged increase physical activity, increase protein intake and reduced carbohydrate, processed food and sugary foods. Orders: Orders AMB Hemoglobin A1c Today E11.65 - Type 2 diabetes mellitus with hyperglycemia Medications: New semaglutide (Ozempic) 0.5 mg (0.736 mL) subcut QWEEK 3 mL 4RF glipizide ER 5 mg PO DAILY 90 tabs 0RF Discontinued dulaglutide (Trulicity) Discontinued Reason: Doctor's Order 1.5 mg (0.5 mL) subcut QWEEK 2 mL 5RF Coding Level of Care Code Est Pt Level 4 (05476) Complex EM visit Add On G2211 Diagnoses Uncontrolled type 2 diabetes mellitus with hyperglycemia E11.65 Obesity (BMI 30-39.9) E66.9
[2024-10-07 12:55] VITALS: BP 121/75; PULSE 102; O2SAT 98; BMI 36.3
[2024-10-07 13:05] LABS: Glucose, Whole Blood 259 mg/dL (60-115)
== END 2024-10-07 13:16 | disposition home or self-care (01) ==
LOC: HO.ENCR 12:49
PROVIDERS: PCP Family Medicine; Visit Provider Physician Assistant
DX: E11.65 Type 2 diabetes mellitus with hyperglycemia (principal); E66.9 Obesity, unspecified

== ENCOUNTER → 2024-10-07 12:49 | Outpatient (BNVA) | payer MEDICARE, MEDICAID, SELFPAY | PROVIDERS: PCP Family Medicine; Visit Provider Physician Assistant | DX: E11.65 Type 2 diabetes mellitus with hyperglycemia (principal); E66.9 Obesity, unspecified | CPT/HCPCS: 82947; 83036; 99212 ==

== ENCOUNTER 2024-11-09 09:43 | Outpatient (REF) | payer MEDICARE, MEDICAID, SELFPAY ==
[2024-11-09 11:53] LABS: Estimated Average Glucose 169 mg/dL; Hemoglobin A1C 240.3728 umol/L; Hemoglobin A1c % 7.5 % (<6.0); Total Hemoglobin (HGBA1C) 4076.7535 umol/L
[2024-11-09 12:23] LABS: Alanine Aminotransferase 72 U/L (0-40); Albumin Level 4.6 g/dL (3.5-5.0); Alkaline Phosphatase 77 U/L (39-117); Anion Gap 11 (12-20); Aspartate Amino Transferase 38 U/L (5-37); Bilirubin Total 0.5 mg/dL (0.0-1.0); Blood Urea Nitrogen 15 mg/dL (9-16); Calcium 9.5 mg/dL (8.4-10.2); Carbon Dioxide 24 mmol/L (22-29); Chloride 106 mmol/L (96-108); Estimated Glomerular Filt Rate > 60; Glucose Fasting 136 mg/dL (60-99); Potassium 4.1 mmol/L (3.3-5.1); Sodium 137 mmol/L (135-145); Total Protein 7.7 g/dL (6.5-8.0)
== END 2024-11-09 09:44 | disposition home or self-care (01) ==
LOC: HO.WFDLDS 09:43
PROVIDERS: Visit Provider Physician Assistant
DX: E11.65 Type 2 diabetes mellitus with hyperglycemia (principal); E66.9 Obesity, unspecified; R79.89 Other specified abnormal findings of blood chemistry
CPT/HCPCS: 36415; 80053; 83036

== ENCOUNTER 2024-11-11 12:55 | Outpatient (AMB) | payer MEDICARE, MEDICAID, SELFPAY ==
--- NOTE | 2024-11-11 12:56 | A.OFFVIS_ITS ---
Vital Signs 11/11/24 12:57 Height 5 ft 6.3 in Weight 214 lb 1.102 oz BMI 34.2 BP 108/80 Blood Pressure Location Lt brachial Position Sitting Pulse 109 H Pulse Source Pulse Oximeter Pulse Oximetry (%) 93 Oxygen Delivery Method Room Air Intake Visit Reasons: DM Intake Note: Patient present today for Type 2 Diabetes Mellitus Last Diabetic eye exam: 12/2023 Last Podiatry Visit: Doesn't have one Random Glucose: 159 mg/dl HgA1C: 8.1% 10/07/24 Office Manager Receptionist Required: No Accompanied by: Self / Same As Patient Allergies No Known Allergies [No Known Allergies*] Allergy (Verified 11/11/24 13:01) Medication List - Last Reconciled 11/11/24 by Allison Bashir PA-C blood sugar diagnostic (FreeStyle Lite Strips) Use 3 x daily As directed to check blood glucose blood-glucose meter (FreeStyle Lite Meter kit) Use daily As directed to check blood glucose famotidine 40 mg PO DAILY lancets (FreeStyle Lancets) use 3 x daily as directed to check blood glucose metoprolol succinate ER 25 mg PO DAILY omeprazole 20 mg PO DAILY HPI HPI DM: Details: Patient is a 39-year-old male who presents today for a follow up of his diabetes. Endo: Recently diagnosed type 2 diabetic (2023). Most recent A1c 7.5 down from 8.1. He is currently on Ozempic 0.5 mg weekly. no side effects He has lost 13 lb with the Ozempic. Denies any low blood sugars. Trialed metformin because GI upset. stopped glip due to lower glucose readings. He states that the Trulicity appears to be completely ineffective and at times he is getting nauseous with it. He wants to try a different medication. CV: Blood pressure today in the office is 108/805 He is on metoprolol 25 mg daily. His weight is still elevated and he states that aware that he to lose weight. GI: He has had a liver ultrasound and is following with GI for his fatty liver. [facility] Medical History Family history of type 1 diabetes mellitus Surgical History Hx of hernia repair Family History Father Heart attack Mother Eye disease Chronic asthma Social History Alcohol intake: current Alcohol intake frequency: holidays/special occasions only Patient Tobacco Use Status: Former Tobacco user Physical Exam Const Orientation/consciousness: patient oriented x3 Neck Neck: Yes no lymphadenopathy Thyroid: Thyroid normal Carotids: no bruits Resp Auscultation: clear to auscultation bilaterally Cardio Rate: regular rate Rhythm: regular rhythm Heart sounds: S1 normal heart sound present and S2 normal heart sound present Peripheral pulses: dorsalis pedis present Neuro General: patient oriented x3, gait normal and no focal motor deficits Extrem Other: Monofilament sensation intact bilaterally. Vibratory sensation intact bilaterally. Skin intact. General: Yes normal to inspection Results Reviewed Results Reviewed: Laboratory Tests 01/09/23 02/04/24 10/07/24 12:25 07:15 13:04 Sodium Potassium Chloride Carbon Dioxide Anion Gap BUN Creatinine Estimated GFR Fasting Glucose Hgb A1c (Clinic) 8.1 H Hemoglobin A1c % AST ALT Alkaline Phosphatase Triglycerides 205 Cholesterol 198 LDL Cholesterol, Calc 120 HDL Cholesterol 37 Urine Creatinine 106.08 Urine Microalbumin < 5.0 Microalb/Creat Ratio TNP 11/09/24 09:44 Sodium 137 Potassium 4.1 Chloride 106 Carbon Dioxide 24 Anion Gap 11 L BUN 15 Creatinine 0.83 Estimated GFR > 60 Fasting Glucose 136 H Hgb A1c (Clinic) Hemoglobin A1c % 7.5 H AST 38 H ALT 72 H Alkaline Phosphatase 77 Triglycerides Cholesterol LDL Cholesterol, Calc HDL Cholesterol Urine Creatinine Urine Microalbumin Microalb/Creat Ratio Laboratory Tests 02/05/24 02/19/24 13:54 13:59 Islet Cell Ab Screen NEGATIVE ADELSO Antibody <5 Assessment & Plan Assessment & Plan (1) Uncontrolled type 2 diabetes mellitus with hyperglycemia: Code(s): E11.65 - Type 2 diabetes mellitus with hyperglycemia Category: Medical Plan: Increase Ozempic to 1 mg weekly Repeat diabetic labs in 3 months. Return for visit. Congratulated on weight loss. (2) Obesity (BMI 30-39.9): Code(s): E66.9 - Obesity, unspecified Category: Medical Plan: As above. (3) Elevated LFTs: Code(s): R79.89 - Other specified abnormal findings of blood chemistry Category: Medical Plan: Referral to GI. Advised to follow up with PCP. Orders: Orders Comprehensive [place]. Panel Fast Today E11.65 - Type 2 diabetes mellitus with hyperglycemia, E66.9 - Obesity, unspecified, R79.89 - Other specified abnormal findings of blood chemistry Lipid Panel Today E11.65 - Type 2 diabetes mellitus with hyperglycemia, E66.9 - Obesity, unspecified, R79.89 - Other specified abnormal findings of blood chemistry Hemoglobin A1c Today E11.65 - Type 2 diabetes mellitus with hyperglycemia, E66.9 - Obesity, unspecified, R73.01 - Impaired fasting glucose, R79.89 - Other specified abnormal findings of blood chemistry Microalbumin, Random (w Creat) Today E11.65 - Type 2 diabetes mellitus with hyperglycemia, E66.9 - Obesity, unspecified, R79.89 - Other specified abnormal findings of blood chemistry Referrals Gastroenterology Referral E11.65 - Type 2 diabetes mellitus with hyperglycemia, E66.9 - Obesity, unspecified, R79.89 - Other specified abnormal findings of blood chemistry Medications: New semaglutide (Ozempic) 1 mg (0.75 mL) subcut QWEEK 3 mL 3RF Coding Level of Care Code Est Pt Level 4 (60062) Complex EM visit Add On G2211 Diagnoses Uncontrolled type 2 diabetes mellitus with hyperglycemia E11.65 Obesity (BMI 30-39.9) E66.9 Elevated LFTs R79.89
[2024-11-11 12:57] VITALS: BP 108/80; PULSE 109; O2SAT 93; BMI 34.2
[2024-11-11 13:07] LABS: Glucose, Whole Blood 159 mg/dL (60-115)
== END 2024-11-11 13:14 | disposition home or self-care (01) ==
LOC: HO.ENCR 12:56
PROVIDERS: PCP Family Medicine; Visit Provider Physician Assistant
DX: E11.65 Type 2 diabetes mellitus with hyperglycemia (principal); E66.9 Obesity, unspecified; R79.89 Other specified abnormal findings of blood chemistry

== ENCOUNTER → 2024-11-11 12:55 | Outpatient (BNVA) | payer MEDICARE, MEDICAID, SELFPAY | PROVIDERS: PCP Family Medicine; Visit Provider Physician Assistant | DX: E11.65 Type 2 diabetes mellitus with hyperglycemia (principal); E66.9 Obesity, unspecified; R79.89 Other specified abnormal findings of blood chemistry | CPT/HCPCS: 82947; 99212 ==

== ENCOUNTER 2024-11-15 23:35 | Emergency (ER) | payer MEDICARE, MEDICAID, SELFPAY ==
--- NOTE | ~2024-11-15 | XR_ITS ---
CLINICAL HISTORY: left middle finger pain 3 view left 3rd digit Comparison: None Findings: Bones intact. No dislocations. A soft tissue irregularity identified over the 3rd distal phalanx, possibly consistent with posttraumatic change. No radiopaque foreign body. IMPRESSION: 1. No acute fracture or dislocation injury identified at the left 3rd finger. This document has been electronically signed by: Maurilio Miner MD on 11/16/2024 00:41:24
[2024-11-15 23:36] VITALS: BP 114/56; PULSE 113; RESP 20; TEMP 36.1; O2SAT 95; BMI 34.4
[2024-11-16 00:22] VITALS: BP 117/60; PULSE 116; RESP 16; TEMP 36.9; O2SAT 92
--- NOTE | 2024-11-16 00:40 | ED_ITS ---
HPI - Animal Bite General Chief Complaint: Animal Bite Stated Complaint: lac on fingers Time Seen by Provider: 11/16/24 00:22 Source: patient Mode of arrival: ambulatory Limitations: no limitations History of Present Illness ED Provider: Dr. Radha Dixon HPI narrative: patient comes in the emergency room complaining of a dog bite to the left middle finger. Patient states that his dogs got into a fight and was striking to break up the fight. Patient got bitten. Patient states that both dogs are up-to-date with its immunizations. Patient denies any other injuries Related Data Home Medications ?Medication ?Instructions ?Recorded ?Confirmed famotidine 40 mg tablet 40 mg PO DAILY 02/05/24 11/11/24 metoprolol succinate 25 mg 25 mg PO DAILY 02/05/24 11/11/24 tablet,extended release 24 hr omeprazole 20 mg capsule,delayed 20 mg PO DAILY 02/05/24 11/11/24 release Previous Rx's ?Medication ?Instructions ?Recorded blood-glucose meter (FreeStyle #1 ea 02/05/24 Lite Meter kit) blood sugar diagnostic (FreeStyle #100 ea 04/21/24 Lite Strips) lancets 28 gauge (FreeStyle #100 ea 04/21/24 Lancets) semaglutide 1 mg/dose (4 mg/3 mL) 1 mg (0.75 mL) subcut QWEEK #3 mL 11/11/24 subcutaneous pen injector (Ozempic) amoxicillin 500 mg-potassium 1 tab PO TID 5 days #15 tabs 11/16/24 clavulanate 125 mg tablet (Augmentin) Allergies Allergy/AdvReac Type Severity Reaction Status Date / Time No Known Allergies Allergy Verified 11/15/24 23:38 [No Known Allergies*] Review of Systems Review of Systems: Constitutional : No Weight loss, No Fever, No Chills, No Night Sweats, No Fatigue, No Malaise ENT/Mouth : No Hearing loss, No Ear Pain, No Nasal Congestion, No Sinus Pain, No Hoarseness, No sore throat, No Rhinorrhea, No Swallowing Difficulty Eyes: No Eye Pain, No Swelling, No Redness, No Foreign Body, No Discharge, No Vision Changes Cardiovascular : No Chest Pain, No SOB, No Dyspnea on Exertion, No Orthopnea, No Edema, No Palpitations Respiratory : No Cough, No Sputum, No Wheezing, No Smoke Exposure, No Dyspnea Gastrointestinal : No Nausea, No Vomiting, No Diarrhea, No Constipation, No abdominal Pain, No Hematochezia, No Melena Genitourinary : no irregular bleeding, No Dysuria, No Urinary Frequency, No Hematuria, No Urinary Incontinence, No Urgency, No Flank Pain, No Urinary Flow Changes, No Hesitancy Musculoskeletal : No joint pain, No Myalgias, No Joint Swelling Skin : No Skin Lesions, No rash dog bite to the left middle finger Neuro : No Weakness, No Numbness, No Paresthesias, No Loss of Consciousness, No Dizziness, No Headache Psych : No Anxiety/Panic, No Depression, No SI/HI/AH/VH, No Social Issues, Heme/Lymph: No Bruising, No Bleeding,No Lymphadenopathy Endocrine : No Polyuria, No Polydipsia, No Temperature Intolerance [facility] Past Medical History Medical History Family history of type 1 diabetes mellitus Surgical History Hx of hernia repair Family History Family History Father Heart attack Mother Eye disease Chronic asthma Social History Social History Alcohol intake: current Alcohol intake frequency: holidays/special occasions only Patient Tobacco Use Status: Former Tobacco user Advance Directives: No Advance Directives Information Provided: Yes Physical Exam ED Vital Signs: Vital Signs - 24 hr 11/15/24 23:36 11/16/24 00:22 Temperature 97 F 98.4 F Pulse Rate 113 H 116 H Respiratory Rate 20 16 Blood Pressure 114/56 L 117/60 Pulse Oximetry 95 92 Oxygen Delivery Method Room Air Room Air BMI result Body Mass Index 34.4 Const Other: Appearance: Alert. Oriented X3. No acute distress. Eyes: Pupils equal, round and reactive to light. ENT: Pharynx normal. Neck: Normal inspection. Neck supple. No lymph nodes noted. No crepitus CVS: Normal heart rate and rhythm. Pulses normal. Normal S1 and S2 Respiratory: No respiratory distress. Breath sounds normal. No Wheezing. No rales Abdomen: Soft and nontender. No rigidity. No distention. Skin: Skin warm and dry. Normal skin color. Normal skin turgor. Extremities: No lower extremity edema. No Lacerations. No Rash on patient's left middle finger, on the dorsal aspect of the hand, there is a deep puncture wound and a flap. Patient is able to flex and extend finger. Neuro: Oriented X 3. No motor deficit. No sensory deficit. Moving all extremities. No slurred speech. CN 2 through 12 grossly intact Psych: calm, cooperative, normal affect Medications Administered Discontinued Medications Generic Name Dose Route Start Last Admin Trade Name Jaky PRN Reason Stop Dose Admin Amoxicillin/Clavulanate Potassium 875 mg 11/16/24 00:38 11/16/24 00:52 Amoxicillin/Potassium Clav 875 Mg Tablet PO 11/16/24 00:39 875 mg ONCE ONE Administration Medical Decision Making Medical Decision Making [facility] Narrative: my interpretation of X-ray of the hand : negative for fracture or foreign body patient's hand was soaked in Betadine solution. Thoroughly rinsed. I discussed with the patient that usually dog bites to the hands do not need closure. However, since there is a large flap of tissue, we will need to would couple of stitches to help the skin together. However, they will be in large enough gaps between stitches to allow for drainage. Patient agrees with plan and understands Patient states that he believes that he is up-to-date with his Tdap. Patient states that he will confirmed with his primary care physician. At this time, patient declined booster patient's dogs are up-to-date with they are rabies vaccines. Patient does not need the rabies series Independent Interpretation I performed an independent interpretation of an: Plain X-Ray Radiology Impression Discussion of test interpretation with radiology: I have reviewed the radiologist's reading. Radiologist Impression: Bones intact. No dislocations. A soft tissue irregularity identified over the 3rd distal phalanx, possibly consistent with posttraumatic change. No radiopaque foreign body. IMPRESSION: 1. No acute fracture or dislocation injury identified at the left 3rd finger. Discharge Plan Discharge Clinical Impression: Dog bite, Laceration of finger Patient Disposition: Home, Self-Care Instructions: Animal Bite (ED), Laceration (ED) Additional Instructions: your stitches need to be removed in 7-10 days. Please follow-up with your primary care physician tomorrow. If you have any worsening or new symptoms, please return to the emergency room or call 911 Prescriptions: New amoxicillin-pot clavulanate [Augmentin] 500-125 mg tablet 1 tab PO TID 5 Days Qty: 15 0RF No Action (DME) lancets [FreeStyle Lancets] 28 gauge misc See Rx Instructions .Route Qty: 100 3RF Rx Instructions: use 3 x daily as directed to check blood glucose (DME) FreeStyle Lite Strips Strip See Rx Instructions .ROUTE .MEDSUPPLY Qty: 100 3RF Rx Instructions: Use 3 x daily As directed to check blood glucose Ozempic 1 mg/dose (4 mg/3 mL) pen injector 1 mg subcut QWEEK Qty: 3 3RF omeprazole 20 mg capsule,delayed release(DR/EC) 20 mg PO DAILY famotidine 40 mg tablet 40 mg PO DAILY metoprolol succinate 25 mg tablet extended release 24 hr 25 mg PO DAILY (DME) blood-glucose meter [FreeStyle Lite Meter] Kit See Rx Instructions .ROUTE .MEDSUPPLY Qty: 1 0RF Rx Instructions: Use daily As directed to check blood glucose Print Language: Romanian
[2024-11-16] MEDS: Amoxicillin/Potassium Clav 875 MG TABLET PO (00:52)
--- NOTE | 2024-11-16 00:53 | PC.NURSE ---
Pt medicated per LUZMA. at bedside for sutures.
--- NOTE | 2024-11-16 01:11 | PC.NURSE ---
MD at bedside for wound repair, 2 sutures placed. Wound wrapped. Plan for DC home.
[2024-11-16] MEDS: Lidocaine HCl 1 % 20 ML VIAL 10 ML INFILTRATI (01:37)
[2024-11-16 01:38] VITALS: BP 0/0; PULSE 0; RESP 0; TEMP -17.7; TEMP 0; O2SAT 0
== END 2024-11-16 01:39 | disposition home or self-care (01) ==
PROVIDERS: Emergency Provider Emergency Medicine
DX: S61.253A Open bite of left middle finger without damage to nail, initial encounter (principal); W54.0XXA Bitten by dog, initial encounter; Y93.89 Activity, other specified; Y92.9 Unspecified place or not applicable; Y99.9 Unspecified external cause status
CPT/HCPCS: 12001; 73140; 99283; 99284; J2003

== ENCOUNTER → 2024-11-15 23:50 | Outpatient (BNV) | payer MEDICARE, MEDICAID, SELFPAY | PROVIDERS: Emergency Provider Emergency Medicine; Visit Provider Radiology Diagnostic Radiology | DX: M79.645 Pain in left finger(s) (principal) | CPT/HCPCS: 73140 ==

== ENCOUNTER 2024-11-24 08:31 | Emergency (ER) | payer MEDICARE, MEDICAID, SELFPAY ==
[2024-11-24 08:36] VITALS: BP 134/83; PULSE 100; RESP 20; TEMP 36.1; O2SAT 95; BMI 33.1
--- NOTE | 2024-11-24 09:10 | ED.GENADULT ---
HPI - General Adult General Chief complaint: Wound/Laceration Stated complaint: Suture removal Time Seen by Provider: 11/24/24 09:09 Source: patient and RN notes reviewed Mode of arrival: ambulatory Limitations: no limitations History of Present Illness ED Provider: Jamila Tapia PA-C HPI narrative: This is a 39-year-old male who presents emergency department for suture removal to left middle finger. Patient had sutures placed 9 days ago after he was bit by 2 dogs. he was seen here in 2 sutures were placed to loosely close the wound. He took the full course of antibiotics. He states that the wound is healing well, no fevers or chills. No increased drainage, swelling, or pain. No other complaints or concerns at this time. MD complaint: Suture removal Onset (ago): day(s) Radiation: non-radiation Pain Consistency: constant Relieving factors: none Exacerbating factors: none Associated symptoms: denies other symptoms Treatments prior to arrival: none Related Data Home Medications ?Medication ?Instructions ?Recorded ?Confirmed famotidine 40 mg tablet 40 mg PO DAILY 02/05/24 11/11/24 metoprolol succinate 25 mg 25 mg PO DAILY 02/05/24 11/11/24 tablet,extended release 24 hr omeprazole 20 mg capsule,delayed 20 mg PO DAILY 02/05/24 11/11/24 release Previous Rx's ?Medication ?Instructions ?Recorded blood-glucose meter (FreeStyle #1 ea 02/05/24 Lite Meter kit) blood sugar diagnostic (FreeStyle #100 ea 04/21/24 Lite Strips) lancets 28 gauge (FreeStyle #100 ea 04/21/24 Lancets) semaglutide 1 mg/dose (4 mg/3 mL) 1 mg (0.75 mL) subcut QWEEK #3 mL 11/11/24 subcutaneous pen injector (Ozempic) amoxicillin 500 mg-potassium 1 tab PO TID 5 days #15 tabs 11/16/24 clavulanate 125 mg tablet (Augmentin) bacitracin 500 unit/gram topical 1 appl topical DAILY #14.2 grams 11/24/24 ointment Allergies Allergy/AdvReac Type Severity Reaction Status Date / Time No Known Allergies Allergy Verified 11/24/24 08:37 [No Known Allergies*] Review of Systems Review of Systems: Constitutional: No Weight loss, No Fever, No Chills, No Night Sweats, No Fatigue, No Malaise ENT/Mouth: No Hearing loss, No Ear Pain, No Nasal Congestion, No Sinus Pain, No Hoarseness, No sore throat, No Rhinorrhea, No Swallowing Difficulty Eyes: No Eye Pain, No Swelling, No Redness, No Foreign Body, No Discharge, No Vision Changes Cardiovascular: No Chest Pain, No SOB, No Dyspnea on Exertion, No Orthopnea, No Edema, No Palpitations Respiratory: No Cough, No Sputum, No Wheezing, No Smoke Exposure, No Dyspnea Gastrointestinal: No Nausea, No Vomiting, No Diarrhea, No Constipation, No Abdominal pain, No Hematochezia, No Melena Genitourinary: No irregular bleeding, No Dysuria, No Urinary Frequency, No Hematuria, No Urinary Incontinence/retention, No Urgency, No Flank Pain, No Urinary Flow Changes, No Hesitancy Musculoskeletal: No joint pain, No Myalgias, No Joint Swelling Skin: No Skin Lesions, No rash Neuro: No Weakness, No Numbness, No Paresthesias, No Loss of Consciousness, No Dizziness, No Headache Psych: No Anxiety/Panic, No Depression, No SI/HI/AH/VH, No Social Issues, Heme/Lymph: No Bruising, No Bleeding,No Lymphadenopathy Endocrine: No Polyuria, No Polydipsia, No Temperature Intolerance Yes all other systems are reviewed and are negative Constitutional: Constitutional: Reports as per [facility] Past Medical History Medical History Family history of type 1 diabetes mellitus Surgical History Hx of hernia repair Family History Family History Father Heart attack Mother Eye disease Chronic asthma Social History Social History Alcohol intake: current Alcohol intake frequency: holidays/special occasions only Patient Tobacco Use Status: Former Tobacco user Advance Directives: No Advance Directives Information Provided: Yes Physical Exam ED Vital Signs: Vital Signs - 24 hr 11/24/24 08:36 Temperature 97.0 F Pulse Rate 100 Respiratory Rate 20 Blood Pressure 134/83 Pulse Oximetry 95 Oxygen Delivery Method Room Air BMI result Body Mass Index 33.1 Const Other: General: Awake, alert, and oriented X3. No acute distress. HEENT: Normal inspection CVS: Normal heart rate and rhythm. Pulses normal. Respiratory: No respiratory distress Skin: Warm, dry, no rashes noted to exposed skin. Normal skin color. Normal skin turgor. Extremities: left digit, overlying the DIP region, there is a healing laceration with [address] No surrounding erythema or drainage. Full ROM of the DIP and PIP Neuro: Oriented X 3. No motor deficit. No sensory deficit. Medical Decision Making Medical Decision Making [facility] [place] Narrative: this is a 39-year-old male who presents emergency department for suture removal. He was seen here 9 days ago where he had sutures placed after being bit by a dog. On arrival, vital signs within normal limits. Wound is well healing, no surrounding erythema or warmth. Sutures were removed, patient tolerated procedure well. He is unsure when his last tetanus shot was, he did not confirm this with his primary care physician. Will update today. Discharged with bacitracin to be used daily until wound closes. Given strict return precautions. He understands and agrees with plan. Patient stable for discharge. Differential Diagnosis Differential Diagnoses: The differential diagnosis associated with the presentation includes Wound dehiscence, cellulitis, suture removal, wound check Discharge Plan Discharge Clinical Impression: Visit for suture removal Patient Disposition: Home, Self-Care Instructions: Stitches Removal (ED) Additional Instructions: You were seen in the ER for a suture removal. Your wound is healing well. Please keep wound clean and dry. Cleanse with warm, soapy water. Use bacitracin once a day to prevent infection. If any new or worsening symptoms occur, increased redness, swelling, fevers, chills, decreased range of motion of your finger, please seek emergent care. Prescriptions: New bacitracin 500 unit/gram ointment 1 appl topical DAILY Qty: 14.2 0RF No Action (DME) lancets [FreeStyle Lancets] 28 gauge misc See Rx Instructions .Route Qty: 100 3RF Rx Instructions: use 3 x daily as directed to check blood glucose (DME) FreeStyle Lite Strips Strip See Rx Instructions .ROUTE .MEDSUPPLY Qty: 100 3RF Rx Instructions: Use 3 x daily As directed to check blood glucose amoxicillin-pot clavulanate [Augmentin] 500-125 mg tablet 1 tab PO TID 5 Days Qty: 15 0RF Ozempic 1 mg/dose (4 mg/3 mL) pen injector 1 mg subcut QWEEK Qty: 3 3RF omeprazole 20 mg capsule,delayed release(DR/EC) 20 mg PO DAILY famotidine 40 mg tablet 40 mg PO DAILY metoprolol succinate 25 mg tablet extended release 24 hr 25 mg PO DAILY (DME) blood-glucose meter [FreeStyle Lite Meter] Kit See Rx Instructions .ROUTE .MEDSUPPLY Qty: 1 0RF Rx Instructions: Use daily As directed to check blood glucose Print Language: Indonesian
[2024-11-24] MEDS: Diphth,Pertus(ACell),Tet Adult 0.5 ML SYRINGE IM (09:34)
[2024-11-24 09:47] VITALS: BP 134/83; PULSE 100; RESP 20; TEMP 36.1; O2SAT 95
== END 2024-11-24 09:49 | disposition home or self-care (01) ==
PROVIDERS: Emergency Provider Emergency Medicine Emergency Medical Services; PCP Family Medicine
DX: Z48.02 Encounter for removal of sutures (principal); S61.233D Puncture wound without foreign body of left middle finger without damage to nail, subsequent encounter; W54.0XXD Bitten by dog, subsequent encounter; Z23 Encounter for immunization
CPT/HCPCS: 90471; 90715; 99283; 99284

== ENCOUNTER 2025-01-18 13:47 | Outpatient (AMB) | payer MEDICARE, MEDICAID, SELFPAY ==
[2025-01-18 13:57] VITALS: BMI 32.3
--- NOTE | 2025-01-18 13:57 | MHC.PC.OV ---
Vital Signs 01/18/25 13:57 01/18/25 14:05 Height 5 ft 6 in Weight 90.718 kg BMI 32.3 BP 108/78 Blood Pressure Location Lt brachial Position Sitting Respiration 16 Pulse 77 Pulse Source Pulse Oximeter Temp 98.2 F Temp Source Temporal Artery Scan Pulse Oximetry (%) 98 Oxygen Delivery Method Room Air Intake Visit Reasons: 3 MO F/UP - JOSE A PT - see comments Freight Breaker Required: No Accompanied by: Self / Same As Patient Allergies No Known Allergies (No Known Allergies*) Allergy (Verified 01/18/25 14:02) Medication List - Last Reconciled 01/18/25 by ROBERTO Paredes blood sugar diagnostic (FreeStyle Lite Strips) Use 3 x daily As directed to check blood glucose blood-glucose meter (FreeStyle Lite Meter kit) Use daily As directed to check blood glucose lancets (FreeStyle Lancets) use 3 x daily as directed to check blood glucose metoprolol succinate ER 25 mg PO DAILY omeprazole 20 mg PO DAILY semaglutide (Ozempic) 1 mg (0.75 mL) subcut QWEEK HPI HPI Comments History of Present Illness Details 39-year-old female with history of type 2 diabetes, IBS, hypertriglyceridemia, hypertension, GERD and obesity presents to the office today for evaluation of chronic conditions and to establish care. Type 2 diabetes-last hemoglobin A1c 7.5%, up from 6.6%. Following with endocrinology who recently increased his Ozempic to 1 mg weekly. He does not check his sugars often. He states he has been more compliant with diabetic diet Obesity-has lost 28 lb over the last 3 months with healthy diet and reports exercising at the gym about 1-2 times weekly. He also finds Ozempic very helpful with appetite suppression and dietary choices. IBS-stable Hypertension-controlled with metoprolol which is also helping to control his heart rate as he does have history of tachycardia Hypertriglyceridemia-lipid panel is pending Concerns: None Health maintenance: Colonoscopy is due started H 45 ROS: General: No fevers, malaise, unintentional weight loss HEENT: No blurred vision, diplopia. No sore throat, nasal congestion, rhinorrhea, sinus pain, ear pain Cardiovascular: No chest pain, palpitations, or leg edema Respiratory: No shortness of breath, wheezing, cough GI: No abdominal pain, nausea, vomiting, diarrhea, constipation, melena, hematochezia : No dysuria, hematuria, increased urinary frequency, decreased urinary output MSK: No myalgia, back pain Neuro: No headaches, weakness, paresthesias Skin: No rashes or lesions EXAM: Constitutional - Awake and Alert, No apparent distress Eyes - PERRL Cardiovascular - S1S2, RRR, No edema Respiratory - Normal lung expansion, Normal respiratory effort, No respiratory distress, CTA bilaterally Extremities - no calf tenderness bilaterally, no swelling Skin - Warm/Dry Neurological - Alert & oriented x3 Psychological - Appropriate affect [facility] Medical History (Updated 01/18/25 @ 17:40 by ROBERTO Paredes) Cigarette smoker Hypertension Liver disease Pityriasis versicolor GERD (gastroesophageal reflux disease) IBS (irritable bowel syndrome) Family history of type 1 diabetes mellitus Surgical History Hx of hernia repair Family History Father Heart attack Mother Eye disease Chronic asthma Social History Alcohol intake: current Alcohol intake frequency: holidays/special occasions only Patient Tobacco Use Status: Former Tobacco user Questionnaire PHQ-9 Over the last 2 weeks, how often have you been bothered by any of the following problems? 1. Little interest or pleasure in doing things: nearly every day 2. Feeling down, depressed, or hopeless: not at all 3. Trouble falling or staying asleep, or sleeping too much: several days 4. Feeling tired or having little energy: not at all 5. Poor appetite or overeating: not at all 6. Feeling bad about yourself - or that you are a failure or have let yourself or your family down: not at all 7. Trouble concentrating on things, such as reading the newspaper or watching television: not at all 8. Moving or speaking so slowly that other people could have noticed. Or the opposite - being so fidgety or restless that you have been moving around a lot more than usual: not at all 9. Thoughts that you would be better off or of hurting yourself in some way: not at all Total score: 4 Source: Developed by Drs. Olayinka Jain, Earnestine Paige, Grayson Ordonez and colleagues, with an educational alma from [employer]. Thrive Questionnaire Date Thrive assessed: 01/18/25 I am a: Patient What is your living situation today?: I have a steady place to live Within the past 12 months, did the food you bought not last and you didn't have the money to get more?: Never true Within the past 12 months, did you worry whether your food would run out before you got money to buy more?: Never true Do you have trouble paying for medicines?: No Do you have trouble getting transportation to medical appointments?: No Do you have trouble paying your heating and electricity bill?: No Do you have trouble taking care of your child, family member or friend?: No Do you have trouble with day-to-day activities such as bathing, preparing meals, shopping, managing finances, etc.?: No Are you currently unemployed and looking for a job?: Yes Are you interested in more education?: No THRIVE Score: 0 ADELSO-7 AMB Questionnaire ADELSO-7 Date ADELSO - 7 assessed: 01/18/25 Feeling nervous, anxious, or on edge: 0 = Not at all Not being able to stop or control worryin = Not at all Worrying too much about different things: 0 = Not at all Trouble relaxin = Not at all Being so restless that it is hard to sit still: 0 = Not at all Becoming easily annoyed or irritable: 0 = Not at all Feeling afraid as if something awful might happen: 0 = Not at all Total ADELSO-7 score (0-4 normal; 5-9 mild; 10-14 moderate; 15-21 severe): 0 Source: Developed by Drs. Olayinka Jain, Earnestine Paige, Grayson Ordonez and colleagues, with an educational alma from [employer]. Physical exam (Primary Care) Vital Signs: Last Vital Signs Temp 98.2 F 01/18/25 14:05 Pulse 77 01/18/25 14:05 Resp 16 01/18/25 14:05 BP 108/78 01/18/25 14:05 Pulse Ox 98 01/18/25 14:05 Oxygen Delivery Method Room Air 01/18/25 14:05 BMI result Body Mass Index 32.3 Tobacco/Smoking Status: Tobacco use Status Patient Tobacco Use Status Former Tobacco user 01/18/25 14:04 PHQ-9: PHQ-9 Score PHQ-9: Total score 4 01/18/25 14:19 Thrive Assessment: Date of Thrive Assessment Date Thrive assessed 01/18/25 01/18/25 14:19 Coding Level of Care Code New Pt Level 4 (22063) Complex EM visit Add On G2211 Diagnoses GERD (gastroesophageal reflux disease) K21.9 Pityriasis versicolor B36.0 Liver disease K76.9 Hypertension I10 Uncontrolled type 2 diabetes mellitus with hyperglycemia E11.65 Obesity E66.9 Assessment & Plan Assessment & Plan (1) GERD (gastroesophageal reflux disease): Code(s): K21.9 - Gastro-esophageal reflux disease without esophagitis Category: Medical Plan: Stable. Continue PPI (2) Pityriasis versicolor: Code(s): B36.0 - Pityriasis versicolor Category: Medical Plan: Stable (3) Liver disease: Code(s): K76.9 - Liver disease, unspecified Category: Medical Plan: LFTs have been stable overall. Continue with healthy diet and avoidance of high fatty foods and highly processed foods (4) Hypertension: Code(s): I10 - Essential (primary) hypertension Category: Medical Plan: Stable. Continue metoprolol (5) Uncontrolled type 2 diabetes mellitus with hyperglycemia: Code(s): E11.65 - Type 2 diabetes mellitus with hyperglycemia Category: Medical Plan: Uncontrolled with hemoglobin A1c 7.5%. Continue following with endocrinology. Continue semaglutide and follow diabetic diet. Annual eye exams but exam is (6) Obesity: Code(s): E66.9 - Obesity, unspecified Category: Medical Plan: Commended on weight loss efforts thus far. Continue with efforts with healthy diet and exercise as well as the assistance from semaglutide. Recommend increasing exercise to 3-4 times weekly at the gym. Plan Follow-up in the office in 4 months. Continue following with endocrinology. Labs to be completed as ordered
[2025-01-18 14:05] VITALS: BP 108/78; PULSE 77; RESP 16; TEMP 36.8; O2SAT 98
== END 2025-01-18 14:24 | disposition home or self-care (01) ==
LOC: HO.HMCHD 13:48
PROVIDERS: PCP Family Medicine; Visit Provider Physician Assistant
DX: K21.9 Gastro-esophageal reflux disease without esophagitis (principal); B36.0 Pityriasis versicolor; K76.9 Liver disease, unspecified; I10 Essential (primary) hypertension; E11.65 Type 2 diabetes mellitus with hyperglycemia; E66.9 Obesity, unspecified

== ENCOUNTER → 2025-01-18 13:47 | Outpatient (BNVA) | payer MEDICARE, MEDICAID, SELFPAY | PROVIDERS: PCP Family Medicine; Visit Provider Physician Assistant | DX: K21.9 Gastro-esophageal reflux disease without esophagitis (principal); B36.0 Pityriasis versicolor; K76.9 Liver disease, unspecified; I10 Essential (primary) hypertension; E11.65 Type 2 diabetes mellitus with hyperglycemia; E66.9 Obesity, unspecified; Z68.32 Body mass index [BMI] 32.0-32.9, adult; K58.9 Irritable bowel syndrome, unspecified; Z79.899 Other long term (current) drug therapy; Z13.31 Encounter for screening for depression; Z13.30 Encounter for screening examination for mental health and behavioral disorders, unspecified | CPT/HCPCS: 96127; 99202 ==

== ENCOUNTER 2025-01-31 08:29 | Outpatient (REF) | payer MEDICARE, MEDICAID, SELFPAY ==
[2025-01-31 09:59] LABS: HIV Num 1 0.33 S/CO (0.00-0.99); Syphilis Screen Nonreactive (Nonreactive)
[2025-01-31 11:51] LABS: CT PCR Urine NOT DETECTED (Not Detect.); NG PCR Urine NOT DETECTED (Not Detect.)
[2025-02-01 22:13] LABS: Trichomonas vag. RNA Ur Male NOT DETECTED (NOT DETECTED)
== END 2025-01-31 08:30 | disposition home or self-care (01) ==
LOC: HO.LAB 08:29
PROVIDERS: PCP Physician Assistant; Visit Provider Physician Assistant
DX: Z71.1 Person with feared health complaint in whom no diagnosis is made (principal)
CPT/HCPCS: 36415; 86780; 87389; 87491; 87591; 87661

== ENCOUNTER 2025-02-08 08:08 | Outpatient (REF) | payer MEDICARE, MEDICAID, SELFPAY ==
[2025-02-08 10:11] LABS: Hemoglobin A1C 171.3654 umol/L; Total Hemoglobin (HGBA1C) 4026.0573 umol/L
[2025-02-08 10:37] LABS: Alanine Aminotransferase 33 U/L (0-40); Albumin Level 4.7 g/dL (3.5-5.0); Alkaline Phosphatase 81 U/L (39-117); Anion Gap 12 (12-20); Aspartate Amino Transferase 23 U/L (5-37); Blood Urea Nitrogen 12 mg/dL (9-16); Calcium 9.3 mg/dL (8.4-10.2); Carbon Dioxide 27 mmol/L (22-29); Chloride 106 mmol/L (96-108); Cholesterol 161 mg/dL (<200); Estimated Glomerular Filt Rate > 60; HDL Cholesterol 38 mg/dL (>40); Potassium 4.3 mmol/L (3.3-5.1); Sodium 141 mmol/L (135-145); Total Protein 7.5 g/dL (6.5-8.0); Triglycerides 89 mg/dL (<150)
[2025-02-08 11:26] LABS: Microalbum/Creatinine Ratio Ur 3.5 ug/mg cr (<30)
== END 2025-02-08 08:09 | disposition home or self-care (01) ==
LOC: HO.LAB 08:08
PROVIDERS: PCP Physician Assistant; Visit Provider Physician Assistant
DX: E11.65 Type 2 diabetes mellitus with hyperglycemia (principal); R79.89 Other specified abnormal findings of blood chemistry; E66.9 Obesity, unspecified
CPT/HCPCS: 36415; 80053; 80061; 82043; 82570; 83036

== ENCOUNTER 2025-02-10 12:34 | Outpatient (AMB) | payer MEDICARE, MEDICAID, SELFPAY ==
[2025-02-10 12:45] VITALS: BP 108/74; PULSE 85; O2SAT 98; BMI 32.2
--- NOTE | 2025-02-10 12:45 | MHC.OFFVIS ---
Vital Signs 02/10/25 12:45 Height 5 ft 6 in Weight 199 lb 11.821 oz BMI 32.2 BP 108/74 Blood Pressure Location Lt brachial Position Sitting Pulse 85 Pulse Source Pulse Oximeter Pulse Oximetry (%) 98 Oxygen Delivery Method Room Air Intake Visit Reasons: T2DM Intake Note: Patient present today for Type 2 Diabetes Mellitus Last Diabetic eye exam: 12/2024 Last Podiatry Visit: Doesn't have one Random Glucose: 217 mg/dl HgA1C: 6.0% 02/08/25 Manager Of Purchasing Required: No Accompanied by: Self / Same As Patient Allergies No Known Allergies (No Known Allergies*) Allergy (Verified 02/10/25 12:51) Medication List - Last Reconciled 02/10/25 by Allison Bashir PA-C blood sugar diagnostic (FreeStyle Lite Strips) Use 3 x daily As directed to check blood glucose blood-glucose meter (FreeStyle Lite Meter kit) Use daily As directed to check blood glucose lancets (FreeStyle Lancets) use 3 x daily as directed to check blood glucose metoprolol succinate ER 25 mg PO DAILY omeprazole 20 mg PO DAILY semaglutide (Ozempic) 2 mg (0.75 mL) subcut QWEEK HPI HPI T2DM: Details: Patient is a 39-year-old male who presents today for a follow up of his diabetes. Endo: Recently diagnosed type 2 diabetic (2023). Most recent A1c 6 down from 7.5. He is currently on Ozempic 1 mg weekly. no side effects He has lost 20 lb with the Ozempic. Denies any low blood sugars. Trialed metformin because GI upset. stopped glip due to lower glucose readings. He states that the Trulicity appears to be completely ineffective and at times he is getting nauseous with it. He wants to try a different medication. CV: Blood pressure today in the office is 108/805 He is on metoprolol 25 mg daily. His weight is still elevated and he states that aware that he to lose weight. GI: He has had a liver ultrasound and is following with GI for his fatty liver. [facility] Medical History (Updated 02/10/25 @ 13:03 by Allison Bashir PA-C) Cigarette smoker Hypertension Liver disease Pityriasis versicolor GERD (gastroesophageal reflux disease) IBS (irritable bowel syndrome) Family history of type 1 diabetes mellitus Surgical History Hx of hernia repair Family History Father Heart attack Mother Eye disease Chronic asthma Social History Alcohol intake: current Alcohol intake frequency: holidays/special occasions only Patient Tobacco Use Status: Former Tobacco user Physical Exam Vital Signs: Last Vital Signs Pulse 85 02/10/25 12:45 BP 108/74 02/10/25 12:45 Pulse Ox 98 02/10/25 12:45 Oxygen Delivery Method Room Air 02/10/25 12:45 BMI result Body Mass Index 32.2 Const Orientation/consciousness: patient oriented x3 HEENT Ears: hearing grossly normal bilaterally Neck Thyroid: Thyroid normal Lymphatic: no lymphadenopathy noted Resp Auscultation: clear to auscultation bilaterally Cardio Rate: regular rate Rhythm: regular rhythm Heart sounds: S1 normal heart sound present and S2 normal heart sound present Skin General skin exam: no rashes or lesions noted Neuro General: patient oriented x3, gait normal and no focal motor deficits Results Reviewed Results Reviewed: Laboratory Tests 11/09/24 02/08/25 09:44 08:29 Creatinine 0.95 Estimated GFR > 60 Fasting Glucose 130 H Hemoglobin A1c % 7.5 H 6.0 AST 23 ALT 33 Alkaline Phosphatase 81 Triglycerides 89 Cholesterol 161 LDL Cholesterol, Calc 106 H HDL Cholesterol 38 L Laboratory Tests 02/08/25 08:28 Urine Creatinine 228.01 Urine Microalbumin 8.0 Microalb/Creat Ratio 3.5 Assessment & Plan Assessment & Plan (1) Controlled type 2 diabetes mellitus: Code(s): E11.9 - Type 2 diabetes mellitus without complications Category: Medical Plan: Increase Ozempic to 2 mg weekly. He will let me know if he does not tolerate this. He is hoping for more weight loss I congratulated him on the weight loss and significantly improved diabetes. (2) Hypertension: Code(s): I10 - Essential (primary) hypertension Category: Medical Plan: We did discuss that his blood pressure is normal today but if he does continue to lose weight we may need to consider adjusting blood pressure regimen. (3) Obesity (BMI 30-39.9): Code(s): E66.9 - Obesity, unspecified Category: Medical Plan: Congratulated him on the weight loss. He is going to continue exercising and eating healthier. Orders: Orders Comprehensive [place]. Panel Fast Today E11.9 - Type 2 diabetes mellitus without complications, E66.9 - Obesity, unspecified, I10 - Essential (primary) hypertension Hemoglobin A1c Today E11.9 - Type 2 diabetes mellitus without complications, E66.9 - Obesity, unspecified, I10 - Essential (primary) hypertension, R73.01 - Impaired fasting glucose Medications: New semaglutide (Ozempic) 2 mg (0.75 mL) subcut QWEEK 3 mL 3RF Discontinued semaglutide (Ozempic) Discontinued Reason: Doctor's Order 1 mg (0.75 mL) subcut QWEEK 3 mL 3RF Coding Level of Care Code Est Pt Level 4 (11759) Complex EM visit Add On G2211 Diagnoses Controlled type 2 diabetes mellitus E11.9 Hypertension I10 Obesity (BMI 30-39.9) E66.9
[2025-02-10 12:57] LABS: Glucose, Whole Blood 217 mg/dL (60-115)
== END 2025-02-10 13:09 | disposition home or self-care (01) ==
LOC: HO.ENCR 12:35
PROVIDERS: PCP Family Medicine; Visit Provider Physician Assistant
DX: E11.9 Type 2 diabetes mellitus without complications (principal); I10 Essential (primary) hypertension; E66.9 Obesity, unspecified

== ENCOUNTER → 2025-02-10 12:34 | Outpatient (BNVA) | payer MEDICARE, MEDICAID, SELFPAY | PROVIDERS: PCP Family Medicine; Visit Provider Physician Assistant | DX: E11.9 Type 2 diabetes mellitus without complications (principal); I10 Essential (primary) hypertension; E66.9 Obesity, unspecified; Z68.32 Body mass index [BMI] 32.0-32.9, adult; Z71.3 Dietary counseling and surveillance | CPT/HCPCS: 82947; 99212 ==

== ENCOUNTER 2025-05-22 15:24 | Outpatient (AMB) | payer MEDICARE, MEDICAID, SELFPAY ==
[2025-05-22 15:26] VITALS: BP 114/80; PULSE 103; O2SAT 97; BMI 29.9
--- NOTE | 2025-05-22 15:26 | MHC.OFFVIS ---
Vital Signs 05/22/25 15:26 Height 5 ft 6 in Weight 184 lb 15.485 oz BMI 29.9 BP 114/80 Blood Pressure Location Lt brachial Position Sitting Pulse 103 H Pulse Source Pulse Oximeter Pulse Oximetry (%) 97 Oxygen Delivery Method Room Air Intake Visit Reasons: DMT2 Follow-up Intake Note: Patient present today for Type 2 Diabetes Mellitus Last Diabetic eye exam: Patient had exam in 2024, not sure of the month. Last Podiatry Visit: Don't have one Random Glucose: 157 mg/dl HgA1C: 5.6% Comber Tender Required: No Accompanied by: Self / Same As Patient Allergies No Known Allergies (No Known Allergies*) Allergy (Verified 05/22/25 15:32) Medication List - Last Reconciled 05/22/25 by Allison Bashir PA-C blood sugar diagnostic (FreeStyle Lite Strips) Use 1x daily As directed to check blood glucose blood-glucose meter (FreeStyle Lite Meter kit) Use daily As directed to check blood glucose lancets (FreeStyle Lancets) use 3 x daily as directed to check blood glucose metoprolol succinate ER 25 mg PO DAILY omeprazole 20 mg PO DAILY semaglutide (Ozempic) 2 mg (0.75 mL) subcut QWEEK HPI HPI DMT2 Follow-up: Details: Patient is a 39-year-old male who presents today for a follow up of his diabetes. Endo: Recently diagnosed type 2 diabetic (2023). A1c today is 5.6. He is currently on Ozempic 2 mg weekly. no side effects He has lost 40 lb with the Ozempic. Denies any low blood sugars. Trialed metformin because GI upset. stopped glip due to lower glucose readings. He states that the Trulicity appears to be completely ineffective and at times he is getting nauseous with it. He wants to try a different medication. CV: Blood pressure today in the office is 114/80. He is on metoprolol 25 mg daily. His weight is still elevated and he states that aware that he to lose weight. GI: He has had a liver ultrasound and is following with GI for his fatty liver. [facility] Medical History (Updated 02/10/25 @ 13:03 by Allison Bashir PA-C) Cigarette smoker Hypertension Liver disease Pityriasis versicolor GERD (gastroesophageal reflux disease) IBS (irritable bowel syndrome) Family history of type 1 diabetes mellitus Surgical History Hx of hernia repair Family History Father Heart attack Mother Eye disease Chronic asthma Social History Alcohol intake: current Alcohol intake frequency: holidays/special occasions only Patient Tobacco Use Status: Former Tobacco user Physical Exam Vital Signs: Last Vital Signs Pulse 103 H 05/22/25 15:26 BP 114/80 05/22/25 15:26 Pulse Ox 97 05/22/25 15:26 Oxygen Delivery Method Room Air 05/22/25 15:26 BMI result Body Mass Index 29.9 Const Orientation/consciousness: patient oriented x3 HEENT Ears: hearing grossly normal bilaterally Neck Thyroid: Thyroid normal Lymphatic: no lymphadenopathy noted Resp Auscultation: clear to auscultation bilaterally Cardio Rate: regular rate Rhythm: regular rhythm Heart sounds: S1 normal heart sound present and S2 normal heart sound present Skin General skin exam: no rashes or lesions noted Neuro General: patient oriented x3, gait normal and no focal motor deficits Results AMB Hemoglobin A1c AMB Hemoglobin A1c 5.6 % Last Edit by CHRIS Trejo on 05/22/25 15:43 Results Reviewed Results Reviewed: Laboratory Last Values Glucose (Clinic) 157 mg/dL (60-115) H 05/22/25 15:34 Laboratory Tests 02/08/25 02/10/25 08:29 12:52 Creatinine 0.95 Estimated GFR > 60 Glucose (Clinic) 217 H Fasting Glucose 130 H Hemoglobin A1c % 6.0 AST 23 ALT 33 Triglycerides 89 Cholesterol 161 LDL Cholesterol, Calc 106 H HDL Cholesterol 38 L Assessment & Plan Assessment & Plan (1) Controlled type 2 diabetes mellitus: Code(s): E11.9 - Type 2 diabetes mellitus without complications Category: Medical Plan: continue Ozempic to 2 mg weekly. I congratulated him on the weight loss and significantly improved diabetes. (2) Obesity (BMI 30-39.9): Code(s): E66.9 - Obesity, unspecified Category: Medical Plan: Congratulated him on the weight loss. He is going to continue exercising and eating healthier. Orders: Orders Microalbumin, Random (w Creat) Today E11.9 - Type 2 diabetes mellitus without complications, E66.9 - Obesity, unspecified, I10 - Essential (primary) hypertension AMB Hemoglobin A1c Today E11.9 - Type 2 diabetes mellitus without complications, Z13.9 - Encounter for screening, unspecified Basic Metabolic Panel Today E11.9 - Type 2 diabetes mellitus without complications, E66.9 - Obesity, unspecified, I10 - Essential (primary) hypertension Hemoglobin A1c Today E11.9 - Type 2 diabetes mellitus without complications, E66.9 - Obesity, unspecified, I10 - Essential (primary) hypertension, R73.01 - Impaired fasting glucose Medications: Changed From lancets (FreeStyle Lancets) use 3 x daily as directed to check blood glucose 100 ea 3RF E11.65 - Type 2 diabetes mellitus with hyperglycemia To lancets (FreeStyle Lancets) use 1x daily as directed to check blood glucose 100 ea 3RF E11.65 - Type 2 diabetes mellitus with hyperglycemia Refilled blood sugar diagnostic (FreeStyle Lite Strips) Use 1x daily As directed to check blood glucose 100 ea 3RF E11.9 - Type 2 diabetes mellitus without complications semaglutide (Ozempic) 2 mg (0.75 mL) subcut QWEEK 3 mL 3RF Coding Level of Care Code Est Pt Level 4 (88048) Complex EM visit Add On G2211 Diagnoses Controlled type 2 diabetes mellitus E11.9 Obesity (BMI 30-39.9) E66.9
[2025-05-22 15:39] LABS: Glucose, Whole Blood 157 mg/dL (60-115)
== END 2025-05-22 15:48 | disposition home or self-care (01) ==
LOC: HO.ENCR 15:24
PROVIDERS: PCP Family Medicine; Visit Provider Physician Assistant
DX: Z13.9 Encounter for screening, unspecified (principal); E11.9 Type 2 diabetes mellitus without complications; E66.9 Obesity, unspecified

== ENCOUNTER → 2025-05-22 15:24 | Outpatient (BNVA) | payer MEDICARE, MEDICAID, SELFPAY | PROVIDERS: PCP Family Medicine; Visit Provider Physician Assistant | DX: E11.9 Type 2 diabetes mellitus without complications (principal); E66.9 Obesity, unspecified; Z68.29 Body mass index [BMI] 29.0-29.9, adult; Z71.3 Dietary counseling and surveillance; Z79.85 Long-term (current) use of injectable non-insulin antidiabetic drugs | CPT/HCPCS: 82947; 83036; 99212 ==

== ENCOUNTER 2025-06-13 14:08 | Outpatient (AMB) | payer MEDICARE, MEDICAID, SELFPAY ==
--- NOTE | 2025-06-13 14:22 | MHC.PC.OV ---
Vital Signs 06/13/25 14:28 Height 5 ft 6.73 in Weight 87.09 kg BMI 30.3 BP 116/62 Blood Pressure Location Lt brachial Position Sitting Respiration 18 Pulse 83 Pulse Source Pulse Oximeter Temp 98.2 F Temp Source Temporal Artery Scan Pulse Oximetry (%) 97 Oxygen Delivery Method Room Air Intake Visit Reasons: 4 mo f/u Financial Analyst Required: No Accompanied by: Self / Same As Patient Allergies No Known Allergies (No Known Allergies*) Allergy (Verified 06/13/25 14:22) Tobacco use date assessed: 06/13/25 Dental Screening Dental Screen Date: 06/13/25 Did you have a dental visit in the last 12 months?: Yes Did you have a dental problem in the last 6 months where you did not have access to dental care?: No Was dental information given to patient?: Patient has dentist HPI HPI Comments History of Present Illness Details 39-year-old female with history of type 2 diabetes, IBS, hypertriglyceridemia, hypertension, GERD and obesity presents to the office today for evaluation of chronic conditions and to establish care. Type 2 diabetes-A1c significantly improved to 5.6%. Has made significant changes to his diet as well as exercise. He is following with endocrinology. He has been using Ozempic 2 mg weekly. Follows for eye exams. Glucose level this morning 95. Obesity-has lost over 40 lb over the last year with healthy diet and reports exercising at the gym about 1-2 times weekly. He also finds Ozempic very helpful with appetite suppression and dietary choices. IBS-stable Hypertension-controlled with metoprolol which is also helping to control his heart rate as he does have history of tachycardia Hyperlipidemia-last LDL 110 Concerns: Nodule nose Health maintenance: Colonoscopy is due started age 46 ROS: General: No fevers, malaise, unintentional weight loss HEENT: No blurred vision, diplopia. No sore throat, nasal congestion, rhinorrhea, sinus pain, ear pain Cardiovascular: No chest pain, palpitations, or leg edema Respiratory: No shortness of breath, wheezing, cough GI: No abdominal pain, nausea, vomiting, diarrhea, constipation, melena, hematochezia : No dysuria, hematuria, increased urinary frequency, decreased urinary output MSK: No myalgia, back pain Neuro: No headaches, weakness, paresthesias Skin: No rashes or lesions EXAM: Constitutional - Awake and Alert, No apparent distress Eyes - PERRL Cardiovascular - S1S2, RRR, No edema Respiratory - Normal lung expansion, Normal respiratory effort, No respiratory distress, CTA bilaterally Extremities - no calf tenderness bilaterally, no swelling Skin - Warm/Dry. About 3 mm firm nodule on the tip of the nose, flesh-colored, no fluctuance Neurological - Alert & oriented x3 Psychological - Appropriate affect [facility] Medical History (Updated 06/13/25 @ 14:39 by ROBERTO Paredes) Cigarette smoker Hypertension Liver disease Pityriasis versicolor GERD (gastroesophageal reflux disease) IBS (irritable bowel syndrome) Family history of type 1 diabetes mellitus Surgical History Hx of hernia repair Family History (Updated 06/13/25 @ 14:42 by ROBERTO Paredes) Father Heart attack Diabetes Mother Eye disease Chronic asthma Glaucoma Social History Housing: Apartment Alcohol intake: current Alcohol intake frequency: holidays/special occasions only Patient Tobacco Use Status: Former Tobacco user Years Smoked: 10 years e-Cigarette/Vaping Use: Never Used service: No Current occupational status: employed Current occupation: [employer] Questionnaire Thrive Questionnaire Date Thrive assessed: 01/18/25 AUDIT C Alcohol Use Questionnaire (AUDIT-C) 1. How often do you have a drink containing alcohol?: Never 3. How often do you have six or more drinks on one occasion?: Never Total Score: 0 ADELSO-7 AMB Questionnaire ADELSO-7 Date ADELSO - 7 assessed: 01/18/25 Source: Developed by Drs. Olayinka Jain, Earnestine Paige, Grayson Ordonez and colleagues, with an educational alma from [employer]. Physical exam (Primary Care) Vital Signs: Last Vital Signs Temp 98.2 F 06/13/25 14:28 Pulse 83 06/13/25 14:28 Resp 18 06/13/25 14:28 BP 116/62 06/13/25 14:28 Pulse Ox 97 06/13/25 14:28 Oxygen Delivery Method Room Air 06/13/25 14:28 BMI result Body Mass Index 30.3 Tobacco/Smoking Status: Tobacco use Status Tobacco use date assessed 06/13/25 06/13/25 14:24 Patient Tobacco Use Status Former Tobacco user 06/13/25 14:24 e-Cigarette/Vaping Use Never Used 06/13/25 14:31 Thrive Assessment: Date of Thrive Assessment Date Thrive assessed 01/18/25 06/13/25 14:24 Coding Level of Care Code Est Pt Level 4 (46216) Complex visit Add On G2211 Diagnoses Hypertension I10 Obesity E66.9 Nodule of skin of nose R22.0 Controlled type 2 diabetes mellitus E11.9 Assessment & Plan Assessment & Plan (1) Hypertension: Code(s): I10 - Essential (primary) hypertension Category: Medical Plan: Stable. Continue metoprolol (2) Obesity: Code(s): E66.9 - Obesity, unspecified Category: Medical Plan: Commended on weight loss efforts thus far. Continue with efforts with healthy diet and exercise as well as the assistance from semaglutide. Recommend increasing exercise to 3-4 times weekly at the gym. Continue with Ozempic (3) Nodule of skin of nose: Code(s): R22.0 - Localized swelling, mass and lump, head Category: Medical Plan: Referred to nephrology (4) Controlled type 2 diabetes mellitus: Code(s): E11.9 - Type 2 diabetes mellitus without complications Category: Medical Plan: Well-controlled. Continue following with endocrinology. Continue with Ozempic. Annual eye exams. Plan Follow-up in the office in 4 months. Continue following with endocrinology. Labs to be completed as ordered Orders: Orders Basic Metabolic Panel Today E11.9 - Type 2 diabetes mellitus without complications, E66.9 - Obesity, unspecified, I10 - Essential (primary) hypertension, K21.9 - Gastro-esophageal reflux disease without esophagitis IRON PROFILE Today E11.9 - Type 2 diabetes mellitus without complications, E66.9 - Obesity, unspecified, I10 - Essential (primary) hypertension, K21.9 - Gastro-esophageal reflux disease without esophagitis Lipid Panel Today E11.9 - Type 2 diabetes mellitus without complications, E66.9 - Obesity, unspecified, I10 - Essential (primary) hypertension, K21.9 - Gastro-esophageal reflux disease without esophagitis Liver Panel Today E11.9 - Type 2 diabetes mellitus without complications, E66.9 - Obesity, unspecified, I10 - Essential (primary) hypertension, K21.9 - Gastro-esophageal reflux disease without esophagitis Referrals Dermatology Referral R22.0 - Localized swelling, mass and lump, head
[2025-06-13 14:28] VITALS: BP 116/62; PULSE 83; RESP 18; TEMP 36.8; O2SAT 97; BMI 30.3
== END 2025-06-13 14:52 | disposition home or self-care (01) ==
LOC: HO.HMCHD 14:08
PROVIDERS: PCP Family Medicine; Visit Provider Physician Assistant
DX: I10 Essential (primary) hypertension (principal); E66.9 Obesity, unspecified; R22.0 Localized swelling, mass and lump, head; E11.9 Type 2 diabetes mellitus without complications

== ENCOUNTER → 2025-06-13 14:08 | Outpatient (BNVA) | payer MEDICARE, MEDICAID, SELFPAY | PROVIDERS: PCP Family Medicine; Visit Provider Physician Assistant | DX: I10 Essential (primary) hypertension (principal); E11.9 Type 2 diabetes mellitus without complications; E66.9 Obesity, unspecified; K21.9 Gastro-esophageal reflux disease without esophagitis; R22.0 Localized swelling, mass and lump, head; Z76.89 Persons encountering health services in other specified circumstances; Z68.30 Body mass index [BMI] 30.0-30.9, adult; Z87.891 Personal history of nicotine dependence; Z79.85 Long-term (current) use of injectable non-insulin antidiabetic drugs | CPT/HCPCS: 99212 ==